=== PATIENT | male | born 1970 | race Caucasian/White ===

== ENCOUNTER 2017-12-20 11:50 | Inpatient (IN) | payer MEDICARE, MEDICAID ==
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
[2017-12-20 13:29] LABS: Amphetamine Screen,Urine Not Detected (NotDetected); Barbiturate Screen,Urine Not Detected (NotDetected); Benzodiazepines Screen,Urine Not Detected (NotDetected); Cocaine Screen,Urine Detected (NotDetected); Methadone Screen, Urine Not Detected (NotDetected); Opiate Screen,Urine Not Detected (NotDetected); Oxycodone Screen, Urine Not Detected (NotDetected); Phencyclidine Screen,Urine Not Detected (NotDetected); Tricyclic Antidepressant,Urine Not Detected (NotDetected); Urn Cannabinoid Scrn Detected (NotDetected)
[2017-12-20] MEDS ORDERED: MAGNESIUM HYDROXIDE 2,400 MG/10 ML CUP PO PRN (14:08)
[2017-12-20] MEDS ORDERED: MAG HYDROX/AL HYDROX/SIMETH 30 ML CUP PO PRN (14:08)
[2017-12-20] MEDS ORDERED: ZIPRASIDONE 20 MG VIAL IM PRN (14:08)
[2017-12-20] MEDS ORDERED: ACETAMINOPHEN TAB 325 MG TAB PO PRN (14:08)
[2017-12-20] MEDS ORDERED: LORazepam 2 MG/ML INJ IM PRN (14:12)
[2017-12-20 14:25] LABS: Appearance,Urine Clear (Clear); Bilirubin,Urine Negative (Negative); Blood,Urine Negative (Negative); Color,Urine Light Yellow; Glucose,Urine (UA) Negative (Negative); Ketones,Urine Trace (Negative); Leukocyte Esterase,Urine Negative (Negative); Nitrite,Urine Negative (Negative); PH, Urine 6.5 (5.0-8.0); Protein,Urine Negative (Negative); Specific Gravity,Urine 1.005 (1.001-1.035); Urobilinogen,Urine <2.0 mg/dL (<2.0)
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
[2017-12-20] MEDS: NICOTINE 14MG/24HR PATCH TRANSDERM SCH (18:07)
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
[2017-12-20] MEDS ORDERED: IBUPROFEN 400 MG TAB PO PRN (18:34)
[2017-12-20] MEDS: LORazepam 1 MG TAB PO PRN (19:34)
[2017-12-20] MEDS: QUEtiapine 400 MG TAB PO SCH (20:46)
[2017-12-21] MEDS: ESCITALOPRAM 5 MG TAB PO SCH (08:33)
[2017-12-21] MEDS: QUEtiapine 50 MG TAB PO SCH (08:33)
[2017-12-21] MEDS: NICOTINE 14MG/24HR PATCH TRANSDERM SCH (08:34)
--- NOTE | 2017-12-21 10:21 | XR ---
EXAMINATION TYPE: XR chest 2V DATE OF EXAM: 12/21/2017 CLINICAL HISTORY: Cough and weight loss TECHNIQUE: Frontal and lateral views of the chest are obtained. COMPARISON: 02/20/2014 FINDINGS: There is no focal air space opacity, pleural effusion, or pneumothorax seen. The cardiac silhouette size is within normal limits. Multiple healed remote right-sided rib fractures identified. IMPRESSION: No acute cardiopulmonary process.
[2017-12-21 11:21] LABS: Albumin 4.4 g/dL (3.5-5.0); Basophils % (A) 0 %; Calcium 9.9 mg/dL (8.4-10.2); Eosinophils # (A) 0.1 k/uL (0-0.7); Eosinophils % (A) 2 %; HCT 42.2 % (39.0-53.0); HGB 13.7 gm/dL (13.0-17.5); Lymphocytes # (A) 2.6 k/uL (1.0-4.8); Lymphocytes % (A) 35 %; MCH 27.5 pg (25.0-35.0); MCHC 32.6 g/dL (31.0-37.0); MCV 84.4 fL (80.0-100.0); Mean Platelet Volume 7.4; Monocytes # (A) 0.4 k/uL (0-1.0); Monocytes % (A) 6 %; Neutrophils # (A) 4.1 k/uL (1.3-7.7); Neutrophils % (A) 56 %; Platelet Count 199 k/uL (150-450); Potassium 4.8 mmol/L (3.5-5.1); RDW 13.4 % (11.5-15.5); Total Bilirubin 0.5 mg/dL (0.2-1.3); Total Protein 7.2 g/dL (6.3-8.2); WBC 7.3 k/uL (3.8-10.6)
--- NOTE | 2017-12-21 13:25 | P.PN ---
Progress Note - Text Progress Note Date: 12/21/17 Interval History: Patient is a 47-year-old male who was seen today, he reports that he was feeling slightly groggy this morning, but states that the voices are much better. He states that he slept well. Patient denies that he called and threatened his girlfriend, he states that they are arguing but he didn't call anyone. Patient reports still having suicidal ideation and feeling slightly less irritable. Patient states that he is still depressed about his situation. Mental Status: Appearance/Attitude: Patient is appropriately dressed, wearing a hoodie and kept the "up over his head during the interview made intermittent eye contact and was cooperative Behavior: Patient does not exhibit any psychomotor agitation or retardation. Speech/Language: Patient's speech is spontaneous of normal volume and rhythm and he is coherent Thought Process: Patient is goal-directed there is no evidence of loose association or flight of ideas and he is not tangential or circumstantial. Thought Content: Patient reports that the auditory hallucinations are much better, denies any visual hallucinations and does not reporting any paranoid ideation. No delusions were elicited. Patient states that he did not call his girlfriend and threaten her last night and states that they have been arguing but denies calling her. He states he slept well last evening and reports his appetite is good. He states that he is still suspicious of people, and states that he still depressed about his current situation. He states he felt slightly groggy this morning. Suicidal/Homicidal Ideation: Patient states that he continues to have suicidal ideation, no current plan and denies any current homicidal ideation. Sensorium/Cognition: Patient is alert and oriented to person, place, and time and his recent and remote memory are grossly intact Mood/Affect: Patient's mood remains depressed and his affect is blunted Insight/Judgment: Patient's insight and judgment are fair Assessment: Patient states that the voices are better, he is feeling slightly groggy this morning and continues to have suicidal thoughts and feel depressed about his current situation. He denies that he contacted his girlfriend and threatened to kill her and states that he never did contact her and states that they have been arguing with each other. Patient reports that he is feeling slightly less irritable than he was prior to admission. Patient was encouraged to attend groups and activities. Plan: Patient will continue on Seroquel 50 mg in the morning and 400 mg at bedtime as well as Lexapro 5 mg daily, we'll continue to evaluate his response. Patient continues to require hospitalization secondary to his auditory hallucinations, his mood and suicidal ideation.
[2017-12-21 19:43] LABS: Hemoglobin A1C 5.5 % (4.0-6.0)
[2017-12-21] MEDS: QUEtiapine 400 MG TAB PO SCH (21:10)
[2017-12-22 06:44] VITALS: RESP 16
[2017-12-22] MEDS: LORazepam 1 MG TAB PO PRN (08:50)
[2017-12-22] MEDS: ESCITALOPRAM 5 MG TAB PO SCH (08:50)
[2017-12-22] MEDS: NICOTINE 14MG/24HR PATCH TRANSDERM SCH (08:50)
[2017-12-22] MEDS: QUEtiapine 50 MG TAB PO SCH ×2 (08:50→16:30)
--- NOTE | 2017-12-22 11:10 | P.PN ---
Progress Note - Text Progress Note Date: 12/22/17 Interval History: Patient is a 47-year-old male who was seen today and states that he continues to want to , and states that the medications have been of little benefit because "I just started it". Patient reports he has no plan to act on his thoughts while he is here. He states that the voices are slowly decreasing but he continues to still feel "pissed off". Patient states that he needs to find housing and that's why he is feeling suicidal, requesting that we find housing for him. He states he is on a waiting list for public housing, demands that we find a place for him at [facility] or some other place. Patient when told that he needs to speak with community mental health regarding housing and that we do not provide housing assistance and we could refer him to a jail or a motel he told me that "if I go out to the street I will kill myself". Patient then got up and walked out of the interview room, using profanity and complaining that no one will help him. Mental Status: Appearance/Attitude: Patient is appropriately dressed, wearing a hoodie with the addison up over his head during the entire interview, making only intermittent eye contact and was initially cooperative becoming increasingly irritable and eventually leaving the interview room Behavior: Patient does not exhibit any psychomotor retardation or agitation but does become increasingly irritable when his demands for housing are not met Speech/Language: Patient's speech is spontaneous and of normal volume and rhythm and he is coherent. Thought Process: Patient is goal-directed, there is no evidence of circumstantial or tangential thought and no loose association or flight of ideas. Thought Content: Patient reports that the auditory hallucinations are slowly decreasing, no visual hallucinations, patient remains suspicious but no delusional ideation was elicited. Patient states that he is sleeping but remains irritable. He states that he wants to because he doesn't have a place to live. Patient is eating well. Suicidal/Homicidal Ideation: Patient states that he is thinking of suicide and wants to but has no plan to act at this time, threatening that if housing is not found for him and he is discharged to a jail he will go out on the street and kill himself. He denies any current homicidal ideation. Sensorium/Cognition: Patient is alert and oriented to person, place, and time and his recent and remote memory are grossly intact. Mood/Affect: Patient's mood remains irritable and his affect is appropriate to his mood Insight/Judgment: Patient's insight and judgment are limited Assessment: Patient remains irritable, stating that he wants to and threatening suicide to to be discharged to a jail and demanding that housing be found for him. Patient reports that the auditory hallucinations are slowly decreasing with the additional Seroquel but states that he feels no less depressed because he is only just started the Lexapro. Patient stated that if he was discharged to a jail he will go out on the street and kill himself. Patient became increasingly irritable during the interview as his demands for housing assistance were not met and abruptly left the interview room. Patient is not attending groups or activities. Plan: Will continue Lexapro 5 mg daily to target his depressive symptoms, increase the Seroquel to 50 mg twice a day and continue 400 milligrams at bedtime to target his psychotic symptoms. Patient was encouraged to work with community mental health on finding housing for him at discharge, he was told that he could either go to a jail or a motel on discharge. Patient continues to require hospitalization secondary to his suicidal ideation, depressed mood and psychotic symptoms.
[2017-12-22] MEDS: QUEtiapine 400 MG TAB PO SCH (21:20)
[2017-12-23] MEDS: ESCITALOPRAM 5 MG TAB PO SCH (09:05)
[2017-12-23] MEDS: LORazepam 1 MG TAB PO PRN ×2 (09:05→18:44)
[2017-12-23] MEDS: QUEtiapine 50 MG TAB PO SCH ×2 (09:05→15:53)
[2017-12-23] MEDS: NICOTINE 14MG/24HR PATCH TRANSDERM SCH (09:05)
[2017-12-23] MEDS ORDERED: ESCITALOPRAM 5 MG TAB PO STA (10:07)
--- NOTE | 2017-12-23 11:48 | P.PN ---
Progress Note - Text Progress Note Date: 12/23/17 Interval History: Patient is a 47-year-old male who was seen today and reports that he felt less irritable with the increase in Seroquel. Patient states that he slept on and off at night but was sleeping during the day yesterday. He states that he continues to feel suicidal and have suicidal thoughts and feel depressed. He reports that the auditory hallucinations are slowing down somewhat. He was unable to tell me why he was asked to leave his current residence stating that the landlord told him that it was because of something he said to his . Patient states he has no idea what the landlord was referring to. Mental Status: Appearance/Attitude: Patient is appropriately dressed, makes intermittent eye contact and is cooperative. Behavior: Patient does not display any psychomotor agitation or retardation. Speech/Language: Patient speech is spontaneous, normal volume and rhythm and he is coherent. Thought Process: Patient is goal-directed, not circumstantial or tangential and no loose association or flight of ideas. Thought Content: Patient states that the auditory hallucinations are decreasing but still present, no visual hallucinations and no delusions or paranoid ideation were elicited. Patient states that he slept on and off last night but had been sleeping during the day. He states his appetite is good. Patient states he still feels irritable but it is less so during the day. He reports he still feels depressed and is concerned about leaving and not having a place to live. Suicidal/Homicidal Ideation: Patient reports he continues to have suicidal ideation, no plan to act at this time and no current homicidal ideation. Sensorium/Cognition: Patient is alert and oriented to person, place, and time and his recent and remote memory are grossly intact. Mood/Affect: Patient's mood remains slightly irritable and depressed and his affect is blunted Insight/Judgment: Patient's insight and judgment are fair. Assessment: Patient continues to report suicidal ideation, states the auditory hallucinations are decreasing but he remains depressed. Patient also states that he is less irritable and is unable to come up with a solution for his housing. Patient is unable to explain why the landlord asked him to leave. Patient has not been attending groups or activities and spends the day in his room in bed, not sleeping well at night. Plan: Patient will continue on Seroquel at 50 mg twice a day and 400 at bedtime and will increase his Lexapro to 10 mg a day to target his depression. Social work is working with the patient regarding housing options for him. Patient requires hospitalization secondary to his suicidal ideation and to further stabilize his mood.
[2017-12-23] MEDS: QUEtiapine 400 MG TAB PO SCH (21:19)
[2017-12-24] MEDS: NICOTINE 14MG/24HR PATCH TRANSDERM SCH (08:47)
[2017-12-24] MEDS: ESCITALOPRAM 10 MG TAB PO SCH (08:47)
[2017-12-24] MEDS: QUEtiapine 50 MG TAB PO SCH ×2 (08:47→16:25)
--- NOTE | 2017-12-24 11:57 | P.PN ---
Progress Note - Text Progress Note Date: 12/24/17 Interval History: Patient is a 47-year-old male who was seen today and reports that he continues to feel "about the same". When I asked him if he was feeling suicidal as he had told me yesterday that he was not he stated no he is not currently suicidal. But he continues to feel depressed and upset because he doesn't have a place to live. Patient states that he was given a list of apartments by [facility] today and has yet to make more than one phone call stating that he's already been turned down by one but when questioned further it's just that there was no availability there. Patient states he attended 2 groups this morning. He states that he needs to find a place to live otherwise he will be living on the streets because he is not going to any detention. Patient does not want his Seroquel increased because he states it already is making him dizzy. Patient states that he doesn't think that the increase in the Lexapro or the change in the Seroquel has made any difference because he still does not have a place to live. Mental Status: Appearance/Attitude: Patient is dressed appropriately, makes intermittent eye contact and is superficially cooperative. Behavior: Patient does not display any psychomotor agitation or retardation, but got up and left the interview room abruptly. Speech/Language: Patient's speech is spontaneous and of normal volume and rhythm and he is coherent. Thought Process: Patient is goal-directed although with brief responses to questions and he is not tangential or circumstantial Thought Content: Patient states the auditory hallucinations have slowed a bit, no visual hallucinations and no paranoid or delusional ideation is elicited. Patient states that he continues to worry and his thoughts are racing about where he is going to live when he is discharged. Patient reports that he feels about the same today as he did on admission. Patient states that he continues to feel depressed because he has no place to live. Patient reports that he slept fairly well but states that he was worried all night about where he is going to live. Patient states his appetite is good. Suicidal/Homicidal Ideation: Patient denies any current suicidal or homicidal ideation. Patient stated that he is he was walking out of the interview room that if he is sent to a detention he'll probably kill someone there. Sensorium/Cognition: Patient is alert and oriented to person, place, and time and his recent and remote memory are grossly intact. Mood/Affect: Patient's mood remains irritable and his affect is blunted Insight/Judgment: Patient's insight and judgment are poor Assessment: Patient continues to report feeling depressed, worried and upset because he has no place to live, making threats to either hurt himself or someone else if he is is sent to a detention and states he'll live on the streets first. Patient reports that he does not want the Seroquel increased because he' s already dizzy from it. Patient states that the Lexapro has not been of any benefit. Patient denies any current suicidal or homicidal ideation. Patient was given a list of apartments by [facility] and has contacted one so far and states he was turned down but in reality they had no availability. Plan: Patient will continue on Lexapro 10 mg a day and Seroquel 50 mg twice a day and 400 mg at bedtime. At patient's request his medications will not be adjusted at this time. Patient and I discussed discharge on Wednesday, patient got upset and walked out of the interview room. Patient was encouraged to contact the apartments on the list over the weekend and attend groups and activities.
[2017-12-24] MEDS: LORazepam 1 MG TAB PO PRN (16:25)
[2017-12-24] MEDS: QUEtiapine 400 MG TAB PO SCH (20:53)
[2017-12-25] MEDS: ESCITALOPRAM 10 MG TAB PO SCH (08:48)
[2017-12-25] MEDS: QUEtiapine 50 MG TAB PO SCH ×2 (08:48→16:24)
[2017-12-25] MEDS: NICOTINE 14MG/24HR PATCH TRANSDERM SCH (08:49)
[2017-12-25] MEDS: LORazepam 1 MG TAB PO PRN ×2 (08:49→17:42)
--- NOTE | 2017-12-25 13:20 | P.PN ---
Progress Note - Text Progress Note Date: 12/25/17 Interval history: Patient seen in [facility] today for Dr. Aceves. He reports that he had multiple different stressors prior to this hospitalization including relationship breakup, losing a job and currently being homeless. He states he doesn't have anywhere to go right now. He also had been off of his medications. He states he feels about the same as when he came in the hospital. Mental status exam: He is alert and cooperative with the interview. His affect is restricted. He appears to have depressed mood. He admits to some ongoing thoughts of suicide but reports that he feels safe. The hospital. He admits to some on and off auditory hallucinations telling him to hurt himself, he relates he tries to ignore them. He denies any thoughts of harm to others. He does not make any daniel delusional statements. Plan: We'll maintain current psychotropic medication regimen. Monitor for any medication side effects. We'll continue to cover this patient for Dr. Aceves through the weekend.
[2017-12-25] MEDS: QUEtiapine 400 MG TAB PO SCH (20:02)
[2017-12-26] MEDS: NICOTINE 14MG/24HR PATCH TRANSDERM SCH (08:21)
[2017-12-26] MEDS: ESCITALOPRAM 10 MG TAB PO SCH (08:21)
[2017-12-26] MEDS: QUEtiapine 50 MG TAB PO SCH ×2 (08:21→15:37)
--- NOTE | 2017-12-26 14:58 | P.PN ---
Progress Note - Text Progress Note Date: 12/26/17 Interval history: Patient is seen in [facility] today for Dr. Aceves. He relays that he is still working on a potential place to go to from the hospital. He relates that he does not want to go to a [facility] because of past experiences there. He relays that he is still struggling with recent relationship breakup. Yesterday he made reference to his recent relationship in terms of her being a patient of mine and relayed for me to remember her name. He clarifies this today by relaying that he said to remember her name in relation to him verbalizing she was a patient of mine. He admits to some ongoing and off thoughts of suicide. He denies any thoughts of harm to others. He does talk about plans to be looking for an alternative job. Mental status exam: He is alert and cooperative with the interview. Speech is fluent, not rapid or pressured. Thought processes organized. His affect overall is restricted. He does not show any active evidence of psychosis. He admits to some on and off thoughts of suicide. He denies any thoughts of harm to others. Plan: We'll maintain current psychotropic medication regimen. We will continue to monitor regarding thoughts of suicide. He is given encouragement regarding continuing to look for potential places to stay. Dr. Aceves will resume care this patient starting tomorrow.
[2017-12-26] MEDS: LORazepam 1 MG TAB PO PRN (15:37)
[2017-12-26] MEDS: QUEtiapine 400 MG TAB PO SCH (20:12)
[2017-12-27 07:11] VITALS: BP 125/76; PULSE 70; TEMP 97.8
[2017-12-27] MEDS: ESCITALOPRAM 10 MG TAB PO SCH (08:16)
[2017-12-27] MEDS: NICOTINE 14MG/24HR PATCH TRANSDERM SCH (08:16)
[2017-12-27] MEDS: QUEtiapine 50 MG TAB PO SCH (08:16)
[2017-12-27] MEDS: LORazepam 1 MG TAB PO PRN (08:16)
--- NOTE | 2017-12-27 10:32 | P.DS ---
Providers Date of admission: 12/20/17 14:03 Expected date of discharge: 12/27/17 Attending physician: Lauren Aceves MD Consults: 12/20/17 14:08 Consult Physician Routine Consulting Provider: Talita Chau Consult Reason/Comments: H&P for mental health admission Do you want consulting provider notified?: Yes Primary care physician: Stated None Hospital Course: Discharge Diagnosis: Schizoaffective disorder, depressed type; marijuana use disorder, mild Reason for Admission: Patient is a 47-year-old male who brought himself to the emergency room today with a plan to cut his wrists. Patient states that he was feeling suicidal, hearing voices states that began after he was kicked out of the place he was living. He states he was in an apartment with other people and he had been living there since July of last year. He states he has no idea why he was asked to leave, he states he was paying his rent and this occurred on Wednesday or Wednesday he is unsure of which day. He states after he left he went to a motel while he was there he had thought of cutting himself with a razor blade and states that he was in the bathtub. Patient states he came to the emergency room because he was feeling depressed. He states that he always feels depressed he is sad and unhappy with his life. He states that prior to Wednesday or Wednesday he was feeling fine and had not been feeling suicidal but was still feeling depressed. Patient states that he always hears voices and most of the time he can ignore them, he states currently the voices are telling him to hurt himself. Patient states that he has been followed at [facility] and is seen on every 2 month basis by his director of casework and every 3 months by a psychiatrist. Patient reports that he has continued with Seroquel 400 mg for some time. Patient was last admitted here in September 2016 was discharged on Seroquel 100 twice a day and 300 at bedtime and Remeron 30 mg at bedtime patient states that the Seroquel during the day was making him sleepy and he is unsure of why the Remeron was discontinued. He feels that the Seroquel was decreased in the spring but is unsure of when he stopped taking the Remeron. Patient states that his receive psychiatric services since he was 15 years of age when he was admitted for the first time after he tried to hang himself. He states that he has been on medication ever since that time and has had numerous admissions. Patient states that he is sleeping about 4 hours a night now and states that he has racing thoughts and worries at night. He states that the Seroquel makes him feel tired during the day. 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 He states that he does go to work but does not enjoy it. Patient reports that he uses marijuana several times a week and was unaware that crack was in the marijuana he used the other day. Patient does not endorse any history of manic episodes in the past, no OCD symptoms and states that in the past he has mostly had depressive episodes with suicide attempts 3-4 times. Patient reports that he hears voices and he always has as well as being suspicious of people and doesn't trust anyone. He states the voices currently and in the past have been command telling him to hurt himself, he states when he is not feeling as depressed he is able to ignore the voices. Mental status on Admission: Appearance/Attitude: Patient is dressed in a hospital gown, makes intermittent eye contact and is cooperative Behavior: Patient does not display any psychomotor agitation or retardation. Speech/Language: Patient's speech is spontaneous and of normal volume and rhythm and he is coherent. Thought Process: Patient is goal-directed there is no evidence of loose association or flight of ideas and he is not circumstantial or tangential. Patient does complain of racing thoughts at night when he is trying to fall asleep. Thought Content: Patient states that he is hearing voices, currently the voices are telling him to hurt himself or making derogatory comments about him and he denies any visual hallucinations. Patient states that he is always suspicious and doesn't trust anyone but no delusional or paranoid ideation was elicited. Patient states he sleeps about 4 hours a night because of the racing thoughts and worries that he has. Patient states that he is been more irritable and upset since he was kicked out of his living situation. He states since that time he began feeling suicidal with a plan to cut his wrists. Suicidal/Homicidal Ideation: Patient states he is having suicidal ideation, doesn't want to live, tired of his visits to the hospital and had a plan to cut his wrists and he denies any current homicidal ideation Sensorium/Cognition: Patient is alert and oriented to person, place, and time and his recent and remote memory are grossly intact. Mood/Affect: Patient's mood is irritable at times, depressed and his affect is blunted Insight/Judgment: Patient's insight and judgment are fair Hospital Course: Patient was admitted on a voluntary basis, placed on routine precautions and group and activity therapy were ordered. Patient was also ordered laboratory studies as well as a medical consultation. Patient was continued on his Seroquel 400 mg at bedtime and 50 mg was added in the morning initially to target his irritability as well as his auditory hallucinations. Patient was placed on Lexapro 5 mg to target his depressive symptoms. Patient continued to report suicidal ideation, feeling hopeless about his life as well as feeling irritable and the voices persisting. Seroquel was increased to 50 mg twice a day and 400 at bedtime and his Lexapro was also increased to 10 mg a day. Patient reported that the auditory hallucinations had quieted down quite a bit and were back to what was baseline for him. Patient had been given a list of low income apartments by [facility] and he stated that he called and no one had any openings. Patient reported that the suicidal thoughts came and went but he had no plan to act on them. Patient did not attend groups or activities , spent most of his time in his room. Patient discussed going to a hotel at the time of discharge to await an opening in a low income apartment. Patient reported that he would return to work after discharge. Patient in goal setting group reported that he felt the same and stated that he was hopeless and he was referring to being hopeless about his life in general. Patient and I discussed discharge and he stated that he felt he was ready for discharge today. Allergies No Known Allergies Allergy (Verified 12/20/17 12:22) Laboratory Last Values WBC 7.3 k/uL (3.8-10.6) 12/21/17 10:52 RBC 5.00 m/uL (4.30-5.90) 12/21/17 10:52 Hgb 13.7 gm/dL (13.0-17.5) 12/21/17 10:52 Hct 42.2 % (39.0-53.0) 12/21/17 10:52 MCV 84.4 fL (80.0-100.0) 12/21/17 10:52 MCH 27.5 pg (25.0-35.0) 12/21/17 10:52 MCHC 32.6 g/dL (31.0-37.0) 12/21/17 10:52 RDW 13.4 % (11.5-15.5) 12/21/17 10:52 Plt Count 199 k/uL (150-450) 12/21/17 10:52 Neutrophils % 56 % 12/21/17 10:52 Lymphocytes % 35 % 12/21/17 10:52 Monocytes % 6 % 12/21/17 10:52 Eosinophils % 2 % 12/21/17 10:52 Basophils % 0 % 12/21/17 10:52 Neutrophils # 4.1 k/uL (1.3-7.7) 12/21/17 10:52 Lymphocytes # 2.6 k/uL (1.0-4.8) 12/21/17 10:52 Monocytes # 0.4 k/uL (0-1.0) 12/21/17 10:52 Eosinophils # 0.1 k/uL (0-0.7) 12/21/17 10:52 Basophils # 0.0 k/uL (0-0.2) 12/21/17 10:52 Sodium 144 mmol/L (137-145) 12/21/17 10:52 Potassium 4.8 mmol/L (3.5-5.1) 12/21/17 10:52 Chloride 107 mmol/L (98-107) 12/21/17 10:52 Carbon Dioxide 27 mmol/L (22-30) 12/21/17 10:52 Anion Gap 10 mmol/L 12/21/17 10:52 BUN 20 mg/dL (9-20) 12/21/17 10:52 Creatinine 1.19 mg/dL (0.66-1.25) 12/21/17 10:52 Est GFR (CKD-EPI)AfAm 83 (>60 ml/min/1.73 sqM) 12/21/17 10:52 Est GFR (CKD-EPI)NonAf 72 (>60 ml/min/1.73 sqM) 12/21/17 10:52 Glucose 99 mg/dL (74-99) 12/21/17 10:[address] Glu mg/dL 111 12/21/17 10:52 Hemoglobin A1c 5.5 % (4.0-6.0) 12/21/17 10:52 Calcium 9.9 mg/dL (8.4-10.2) 12/21/17 10:52 Total Bilirubin 0.5 mg/dL (0.2-1.3) 12/21/17 10:52 AST 18 U/L (17-59) 12/21/17 10:52 ALT 22 U/L (21-72) 12/21/17 10:52 Alkaline Phosphatase 56 U/L (38-126) 12/21/17 10:52 Total Protein 7.2 g/dL (6.3-8.2) 12/21/17 10:52 Albumin 4.4 g/dL (3.5-5.0) 12/21/17 10:52 Triglycerides 90 mg/dL (<150) 12/21/17 10:52 Cholesterol 230 mg/dL (<200) H 12/21/17 10:52 LDL Cholesterol, Calc 165 mg/dL (0-99) H 12/21/17 10:52 HDL Cholesterol 47 mg/dL (40-60) 12/21/17 10:52 TSH 1.620 mIU/L (0.465-4.680) 12/21/17 10:52 Urine Color Light Yellow 12/20/17 12:58 Urine Appearance Clear (Clear) 12/20/17 12:58 Urine pH 6.5 (5.0-8.0) 12/20/17 12:58 Ur Specific [place] 1.005 (1.001-1.035) 12/20/17 12:58 Urine Protein Negative (Negative) 12/20/17 12:58 Urine Glucose (UA) Negative (Negative) 12/20/17 12:58 Urine Ketones Trace (Negative) H 12/20/17 12:58 Urine Blood Negative (Negative) 12/20/17 12:58 Urine Nitrite Negative (Negative) 12/20/17 12:58 Urine Bilirubin Negative (Negative) 12/20/17 12:58 Urine Urobilinogen <2.0 mg/dL (<2.0) 12/20/17 12:58 Ur Leukocyte Esterase Negative (Negative) 12/20/17 12:58 Urine Opiates Screen Not Detected (NotDetected) 03 12:58 Ur Oxycodone Screen Not Detected (NotDetected) 12/20/17 12:58 Urine Methadone Screen Not Detected (NotDetected) 12/20/17 12:58 Ur Propoxyphene Screen Not Detected (NotDetected) 12/20/17 12:58 Ur Barbiturates Screen Not Detected (NotDetected) 12/20/17 12:58 U Tricyclic Antidepress Not Detected (NotDetected) 12/20/17 12:58 Ur Phencyclidine Scrn Not Detected (NotDetected) 12/20/17 12:58 Ur Amphetamines Screen Not Detected (NotDetected) 12/20/17 12:58 U Methamphetamines Scrn Not Detected (NotDetected) 12/20/17 12:58 U Benzodiazepines Scrn Not Detected (NotDetected) 12/20/17 12:58 Urine Cocaine Screen Detected (NotDetected) H 12/20/17 12:58 U Marijuana (THC) Screen Detected (NotDetected) H 12/20/17 12:58 Discharge Mental Status: Appearance/Attitude: Patient was dressed in a hoodie with the addison up, makes intermittent eye contact and is cooperative Behavior: Patient does not display any psychomotor agitation or retardation. Speech/Language: Patient's speech is spontaneous and of normal volume and rhythm and he is coherent. Thought Process: Patient is goal-directed, there is no evidence of loose associations or flight of ideas and he is not circumstantial or tangential. Thought Content: Patient states that the auditory hallucinations have quieted down and of return to baseline, he denies any visual hallucinations and no delusions or paranoid ideation were elicited. Patient states that he has been sleeping, states that he feels hopeless about his whole life stating that he doesn't know what's going to happen to his life in general. Patient reports a good appetite. Patient states that he contacted all of the low income apartment and no one had an opening. Suicidal/Homicidal Ideation: Patient states that the suicidal thoughts, and go, he has no current plan to act and he denies any current homicidal ideation Sensorium/Cognition: Patient is alert and oriented to person, place, and time and his recent and remote memory are grossly intact. Mood/Affect: Patient's mood remains slightly depressed and his affect is blunted Insight/Judgment: Patient's insight and judgment are fair Risk Assessment: Patient's risk remains moderate secondary to his use of drugs/ alcohol Discharge Plan: Patient will be discharged, he states he will be staying at the [facility] and plans to return to [employer] to work in [employer]. Patient will continue on Seroquel 50 mg twice a day and 400 mg at bedtime as well as Lexapro 10 mg in the morning. Patient will be given prescriptions for these medications and will follow up at [facility] upon discharge and was encouraged to follow up with [facility] on locating housing. Patient was encouraged to avoid any alcohol or drugs on discharge. Patient Condition at Discharge: Stable Plan - Discharge Summary Discharge Rx Participant: No New Discharge Prescriptions: New Escitalopram [Lexapro] 10 mg PO DAILY #14 tab QUEtiapine [SEROquel] 50 mg PO 0900,1600 #28 tab Continue QUEtiapine FUMARATE [SEROquel] 400 mg PO HS #14 tablet Discharge Medication List Escitalopram [Lexapro] 10 mg PO DAILY #14 tab 12/27/17 [Rx] QUEtiapine FUMARATE [SEROquel] 400 mg PO HS #14 tablet 12/27/17 [Rx] QUEtiapine [SEROquel] 50 mg PO 0900,1600 #28 tab 12/27/17 [Rx] Follow up Appointment(s)/Referral(s): [facility] [Outside] - 12/28/17 11:30 am (12-28-17 @ 11:[address] Solomon 12-29-17 @ 4:15 with Luli Shelton) None,Stated [Primary Care Provider] - 1-2 days Patient Instructions/Handouts: Depression (DC), Suicide Prevention for Adults ( [place]) Activity/Diet/Wound Care/Special Instructions: Activity and diet as tolerated. Avoid the use of street drugs and alcohol. Remove all firearms from home. Take all medications as prescribed. When you are in need of refills of your medication please contact your medical provider and/ or outpatient psychiatrist to have this done. Please go to scheduled outpatient appointment for aftercare. If symptoms return or become worse you can call the Crisis Line at and/or go to the nearest emergency room for an evaluation. Discharge Disposition: HOME SELF-CARE
== END 2017-12-27 11:16 | disposition home or self-care (01) | DRG 885 ==
LOC: EC 11:50 → 3MHU 14:03
PROVIDERS: ADMIT Psychiatry & Neurology Psychiatry; ATTEND Psychiatry & Neurology Psychiatry
DX: F25.1 Schizoaffective disorder, depressive type (principal); R45.851 Suicidal ideations; Z59.0 Homelessness; F12.10 Cannabis abuse, uncomplicated; F41.9 Anxiety disorder, unspecified; F90.9 Attention-deficit hyperactivity disorder, unspecified type; F17.200 Nicotine dependence, unspecified, uncomplicated; G89.29 Other chronic pain; M54.5 Low back pain; M19.91 Primary osteoarthritis, unspecified site; Z79.899 Other long term (current) drug therapy; Z96.622 Presence of left artificial elbow joint; Z86.711 Personal history of pulmonary embolism; Z71.6 Tobacco abuse counseling
CPT/HCPCS: 71046; 80053; 80061; 80306; 81003; 82075; 83036; 84443; 85025; 99285

== ENCOUNTER 2021-12-09 12:22 | Inpatient (IN) | payer MEDICARE, MEDICAID ==
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
[2021-12-09 13:33] LABS: Amphetamine Screen,Urine Not Detected (NotDetected); Benzodiazepines Screen,Urine Detected (NotDetected); Cocaine Screen,Urine Detected (NotDetected); Methadone Screen, Urine Not Detected (NotDetected); Opiate Screen,Urine Not Detected (NotDetected); Phencyclidine Screen,Urine Not Detected (NotDetected); Tricyclic Antidepressant,Urine Not Detected (NotDetected); Urn Cannabinoid Scrn Detected (NotDetected)
[2021-12-09 13:34] LABS: Barbiturate Screen,Urine Not Detected (NotDetected); Oxycodone Screen, Urine Not Detected (NotDetected)
--- NOTE | 2021-12-09 16:46 | XR ---
EXAMINATION TYPE: XR foot complete LT DATE OF EXAM: 12/09/2021 COMPARISON: NONE HISTORY: Pain TECHNIQUE: 3 views FINDINGS: There is minimal plantar and Achilles calcaneal spurring. Metatarsals are intact. The toes appear intact. I see no fracture nor dislocation. IMPRESSION: No acute abnormality of the left foot. No evidence of radiopaque foreign body.
[2021-12-09] MEDS ORDERED: MAGNESIUM HYDROXIDE 2,400 MG/10 ML CUP PO PRN (20:36)
[2021-12-09] MEDS ORDERED: ACETAMINOPHEN TAB 325 MG TAB PO PRN (20:36)
[2021-12-09] MEDS ORDERED: HALOPERIDOL LACTATE 5 MG/ML 1 ML VIAL IM PRN (20:36)
[2021-12-09] MEDS ORDERED: MAG HYDROX/AL HYDROX/SIMETH 30 ML CUP PO PRN (20:36)
[2021-12-09] MEDS ORDERED: LORazepam 2 MG/ML INJ IM PRN (20:38)
[2021-12-09] MEDS: LORazepam 1 MG TAB PO PRN (20:52)
[2021-12-09] MEDS: haloperidoL 5 MG TAB PO PRN (20:52)
[2021-12-10 07:25] LABS: Basophils # (A) 0.1 k/uL (0-0.2); Basophils % (A) 1 %; Eosinophils # (A) 0.3 k/uL (0-0.7); Eosinophils % (A) 4 %; HCT 46.4 % (39.0-53.0); HGB 15.1 gm/dL (13.0-17.5); Lymphocytes # (A) 2.6 k/uL (1.0-4.8); Lymphocytes % (A) 40 %; MCH 29.3 pg (25.0-35.0); MCHC 32.6 g/dL (31.0-37.0); MCV 89.9 fL (80.0-100.0); Mean Platelet Volume 8.1; Monocytes # (A) 0.4 k/uL (0-1.0); Monocytes % (A) 6 %; Neutrophils # (A) 3.2 k/uL (1.3-7.7); Neutrophils % (A) 49 %; Platelet Count 210 k/uL (150-450); RBC 5.16 m/uL (4.30-5.90); RDW 13.9 % (11.5-15.5); WBC 6.6 k/uL (3.8-10.6)
[2021-12-10 07:56] LABS: ALT 16 U/L (4-49); AST 20 U/L (17-59); African American GFR (CKD) >90 (>60 ml/min/1.73 sqM); Albumin 4.4 g/dL (3.5-5.0); Alkaline Phosphatase 59 U/L (38-126); Anion Gap 7 mmol/L; Blood Urea Nitrogen 23 mg/dL (9-20); Calcium 9.4 mg/dL (8.4-10.2); Carbon Dioxide 25 mmol/L (22-30); Chloride 106 mmol/L (98-107); Glucose 91 mg/dL (74-99); Non-African American GFR(CKD) 86 (>60 ml/min/1.73 sqM); Potassium 4.5 mmol/L (3.5-5.1); Sodium 138 mmol/L (137-145); Total Bilirubin 0.8 mg/dL (0.2-1.3); Total Protein 7.7 g/dL (6.3-8.2)
[2021-12-10] MEDS: NICOTINE 14MG/24HR PATCH TRANSDERM SCH (08:06)
[2021-12-10] MEDS: haloperidoL 5 MG TAB PO PRN (11:35)
[2021-12-10] MEDS: LORazepam 1 MG TAB PO PRN (12:18)
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
[2021-12-10 15:00] LABS: Chol/HDL Ratio 5.63 Ratio; LDL Cholesterol,Calculated 181.8 mg/dL (0.0-131.0)
[2021-12-10] MEDS: DULoxetine HCL 30 MG CAPSULE.DR PO SCH (16:46)
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
[2021-12-11] MEDS: QUEtiapine 100 MG TAB PO SCH ×2 (01:54→21:32)
[2021-12-11] MEDS: DULoxetine HCL 30 MG CAPSULE.DR PO SCH (08:12)
[2021-12-11] MEDS: NICOTINE 14MG/24HR PATCH TRANSDERM SCH ×2 (08:12→08:31)
[2021-12-11] MEDS: LORazepam 1 MG TAB PO PRN (08:13)
--- NOTE | 2021-12-11 14:01 | P.PN ---
Progress Note - Text Progress Note Date: 12/11/21 Interval History: Patient was seen laying in his bed today and was directable and agreeable to s peak with display card writer in the office. Patient appears to have mild improvement in his affect today. He appears to be more directable during conversation. Denying any irritability today. He states that he still feels mildly depressed today and some anxiety however does state that Cymbalta has been helping. He states that he is still hearing voices at times however was vague about what they're saying. He states that he fell asleep early last night and missed his dose of Seroquel. He claims that he is thinking about possibly [facility] as he wants to get sober. At this time patient denies any suicidal or homical ideations, intent or plan. Patient denies any visual hallucinations and denies any paranoia or delusions. Patient denies any side effects from the medications and has been compliant with meds. Mental Status Exam: General Appearance: Patient appears to be stated age is alert, directable, and attempts to cooperate. Patient appears to have improving hygiene and grooming. Behavior: Patient is seated without any agitated behavior. Attempts to cooperate. Speech: Patient's speech is fluent and nonpressured. Mood/Affect: Patient reports their mood is improving mildly, affect is congruent and constricted. Suicidality/Homicidality: Patient denies having any homicidal ideation intent or plan. Denies any suicidal ideations intent or plan Perceptions: Patient denies any visual hallucinations and denies any auditory hallucinations Though content/process: There is no evidence of any delusional thought content and thought process is linear and goal-directed. Memory and concentration: AOX3, grossly intact for the purposes of this session. Judgment and insight: poor, improving mildly IMPRESSIONS: Schizoaffective disorder, depressive type Cocaine use disorder Cannabis use disorder mild Nicotine dependence Plan: -Patient continues to meet criteria for inpatient psychiatric admission for symptom stabilization and safety. Patient has signed adult voluntary form and medication consent and was placed in patient's chart. -Medications: Continue Seroquel 100 mg daily at bedtime for mood stabilization/psychosis/insomnia, Cymbalta increased to 60 mg daily for mood/anxiety/pain -When necessary Ativan and Haldol for agitation/aggression. -NRT - nicotine patch -SW on board for discharge planning. Encouraged the patient to participate in milieu. [facility] may [facility] to [facility]. We'll provide patient with information. Likely discharge in 1-2 days.
[2021-12-12 08:38] VITALS: BP 137/81; PULSE 88; RESP 18; TEMP 97.2
[2021-12-12] MEDS: NICOTINE 14MG/24HR PATCH TRANSDERM SCH (08:38)
[2021-12-12] MEDS ORDERED: DULoxetine HCL 60 MG CAPSULE.DR PO SCH (09:00)
--- NOTE | 2021-12-12 13:01 | P.DS ---
Providers Date of admission: 12/09/21 19:54 Expected date of discharge: 12/12/21 Attending physician: Dhruv Jolley MD Consults: 12/09/21 20:36 Consult Physician Routine Consulting Provider: Salazar [place] Consult Reason/Comments: H&P and medical Do you want consulting provider notified?: Yes Primary care physician: Leonid Mendenhall - Discharge Diagnosis(es) (1) Schizoaffective disorder, depressive type Current Visit: Yes Status: Acute Priority: High (2) Cocaine use disorder Current Visit: Yes Status: Acute Priority: High (3) Cannabis use disorder, mild, abuse Current Visit: Yes Status: Acute Priority: Medium (4) Nicotine dependence Current Visit: Yes Status: Acute Priority: Low Hospital Course: Admission HPI: Admission note was completed by [blog writer] "[Patient is a 51-year-old male with a history of schizoaffective disorder, lives alone in apartment is single has no kids. Patient presented to the hospital yesterday on petition by police for depression and suicidal thoughts. Patient was admitted voluntarily however to the mental health unit. He has a history of schizoaffective disorder however has not been compliant with his medications. He is also previously been following up with [facility]. He's had numerous psychiatric admissions. Patient was positive in his urine drug screen for benzodiazepines, cocaine and THC. Patient was agreeable to speech language pathologist assistant today. He appeared to be fairly constricted in his affect and was directable. He states that he is feeling very depressed and hearing voices. He states that the voices and become more "demanding" and has been telling him negative things like he is a "failure" and also to "kill myself". He states that this is going on for the past several weeks. He states that he is also been using about 1 g of cocaine a week. He states that he also uses marijuana frequently. He claims that his payee called the engineering intern to bring him into the hospital. He states that he is trying to get over his roommate who overdosed and about one month ago which has really affected him. He states that he is also having financial difficulties. He claims that he is worried about his job that he recently started working out. He claims that he does deal with chronic depression. He has current anxiety at this time. He states that his sleep has been "on and off" and has a low appetite. He claims that he has been off medications psychiatrically for around 2 years now. Patient denies any homicidal ideations intent or plan. Patient currently claims that he is feeling suicidal however has no intent or plan. At this time patient denies any visual hallucinations. Patient denies any flight of ideas racing thoughts and increased in goal directed behavior. Patient admits to using rec drugs as noted above]" Hospital course: Upon admission to the unit patient was [directable and agreeable to commence treatment and signed adult voluntary form]. Patient got along well with other patients on the unit and followed unit protocol. Patient was compliant with the medications and denied any side effects throughout hospital course. Patient was started on [cymbalta 60 mg daily for mood/anxiety/pain, seroquel 100 mg qhs for insomnia/psychosis/mood stabilization]. Patient spoke of [his] stressors and engaged in therapy both group and individual. Patient was also seen by medical team for history and physical exam. [] Throughout the course of the hospitalization patient gradually improved with regards to [mood, anxiety], sleep and [returned back to their baseline level of functioning]. On the day of discharge patient denied any suicidal or homicidal ideations intent or plan denied any auditory or visual hallucinations. Patient endorsed wanting to live for [his health and to get back to work.] The patient denied any access to guns or weapons. Patient denied any paranoia and did not endorse any delusions. Patient does have a significant history of substance abuse [and] was counseled on abstaining from all substances including alcohol and marijuana. [Patient was offered however declined inpatient substance-abuse rehab.] Patient states that however he will think about possibly getting into [facility] to complete their program at a later date. Patient was also counseled on the medications and need for regular compliance and was encouraged to follow-up with their outpatient appointment for mental health and also for primary care. Mental status exam: General Appearance: Patient appears to be [tall, ]stated age is alert, pleasant, and cooperative. Patient is in no acute distress and has improved hygiene and grooming Behavior: Patient is calmly seated without any agitated behavior. cooperative Speech: Patient's speech is fluent and nonpressured. Mood/Affect: Patient reports their mood is "[better]", affect is congruent Suicidality/Homicidality: Patient denies having any suicidal or homicidal ideation intent or plan. Perceptions: Patient denies any auditory or visual hallucinations. Though content/process: There is no evidence of any delusional thought content and thought process is linear and goal-directed. [more future oriented] Memory and concentration: AOX3, grossly intact for the purposes of this session. Can spell "WORLD" backwards correctly. Judgment and insight: [chronically poor, however has] improved with guarded prognosis Impression: schizoaffective disorder, depressive type cocaine use disorder cannabis use disorder mild [Nicotine dependence] Plan: -Continue with discharge today as patient has improved and stabilized psychiatrically and is not currently an imminent threat to [himself] and/or others. [Patient will remain at chronically elevated risk for harm to self and/or others due to his impulsivity and substance abuse.] -Continue medications: cymbalta 60 mg daily for anxiety/mood/pain, seroquel 100 mg qhs for sleep/psychosis/mood stabilization. -Patient was counseled on the need for medication compliance and appropriate follow-up at mental health and also primary care for medical issues. Patient verbalized understanding and agreed. -Social work to help arrange for d/c today back home. Social work also to arrange for patients follow up appointments [with [facility]] for psychiatric care along with follow up with primary care provider. -Patient counseled on abstaining from recreational drugs and marijuana and alcohol. Was informed/educated on the adverse effects on their physical and mental health. [Patient verbally agreed and understood]. [Patient was offered substance abuse treatment however declined at this time.] He states that he will think about going to [facility] at a later date -Patient was instructed to return to the hospital or seek immediate medical care if their psychiatric or medical symptoms do worsen or reoccur. Allergies Allergy/AdvReac Type Severity Reaction Status Date / Time No Known Allergies Allergy Verified 12/09/21 13:55 Laboratory Results WBC 6.6 k/uL (3.8-10.6) 12/10/21 07:00 RBC 5.16 m/uL (4.30-5.90) 12/10/21 07:00 Hgb 15.1 gm/dL (13.0-17.5) 12/10/21 07:00 Hct 46.4 % (39.0-53.0) 12/10/21 07:00 MCV 89.9 fL (80.0-100.0) 12/10/21 07:00 MCH 29.3 pg (25.0-35.0) 12/10/21 07:00 MCHC 32.6 g/dL (31.0-37.0) 12/10/21 07:00 RDW 13.9 % (11.5-15.5) 12/10/21 07:00 Plt Count 210 k/uL (150-450) 12/10/21 07:00 MPV 8.1 12/10/21 07:00 Neutrophils % 49 % 12/10/21 07:00 Lymphocytes % 40 % 12/10/21 07:00 Monocytes % 6 % 12/10/21 07:00 Eosinophils % 4 % 12/10/21 07:00 Basophils % 1 % 12/10/21 07:00 Neutrophils # 3.2 k/uL (1.3-7.7) 12/10/21 07:00 Lymphocytes # 2.6 k/uL (1.0-4.8) 12/10/21 07:00 Monocytes # 0.4 k/uL (0-1.0) 12/10/21 07:00 Eosinophils # 0.3 k/uL (0-0.7) 12/10/21 07:00 Basophils # 0.1 k/uL (0-0.2) 12/10/21 07:00 Sodium 138 mmol/L (137-145) 12/10/21 07:00 Potassium 4.5 mmol/L (3.5-5.1) 12/10/21 07:00 Chloride 106 mmol/L (98-107) 12/10/21 07:00 Carbon Dioxide 25 mmol/L (22-30) 12/10/21 07:00 Anion Gap 7 mmol/L 12/10/21 07:00 BUN 23 mg/dL (9-20) H 12/10/21 07:00 Creatinine 1.00 mg/dL (0.66-1.25) 12/10/21 07:00 Est GFR (CKD-EPI)AfAm >90 (>60 ml/min/1.73 sqM) 12/10/21 07:00 Est GFR (CKD-EPI)NonAf 86 (>60 ml/min/1.73 sqM) 12/10/21 07:00 Glucose 91 mg/dL (74-99) 12/10/21 07:[address] Glu mg/dL 117 12/10/21 07:00 Hemoglobin A1c 5.7 % (0.0-6.0) 12/10/21 07:00 Calcium 9.4 mg/dL (8.4-10.2) 12/10/21 07:00 Total Bilirubin 0.8 mg/dL (0.2-1.3) 12/10/21 07:00 AST 20 U/L (17-59) 12/10/21 07:00 ALT 16 U/L (4-49) 12/10/21 07:00 Alkaline Phosphatase 59 U/L (38-126) 12/10/21 07:00 Total Protein 7.7 g/dL (6.3-8.2) 12/10/21 07:00 Albumin 4.4 g/dL (3.5-5.0) 12/10/21 07:00 Triglycerides 127.00 mg/dL (0.00-149.00) 12/10/21 07:00 Cholesterol 252.00 mg/dL (0.00-200.00) H 12/10/21 07:00 LDL Cholesterol, Calc 181.8 mg/dL (0.0-131.0) H 12/10/21 07:00 VLDL Cholesterol, Calc 25.40 mg/dL (5.00-40.00) 12/10/21 07:00 HDL Cholesterol 44.80 mg/dL (40.00-60.00) 12/10/21 07:00 Cholesterol/HDL Ratio 5.63 Ratio 12/10/21 07:00 TSH 3.970 mIU/L (0.465-4.680) 12/10/21 07:00 Urine Opiates Screen Not Detected (NotDetected) 12/09/21 13:00 Ur Oxycodone Screen Not Detected (NotDetected) 12/09/21 13:00 Urine Methadone Screen Not Detected (NotDetected) 12/09/21 13:00 Ur Propoxyphene Screen Not Detected (NotDetected) 12/09/21 13:00 Ur Barbiturates Screen Not Detected (NotDetected) 12/09/21 13:00 U Tricyclic Antidepress Not Detected (NotDetected) 12/09/21 13:00 Ur Phencyclidine Scrn Not Detected (NotDetected) 12/09/21 13:00 Ur Amphetamines Screen Not Detected (NotDetected) 12/09/21 13:00 U Methamphetamines Scrn Not Detected (NotDetected) 12/09/21 13:00 U Benzodiazepines Scrn Detected (NotDetected) H 12/09/21 13:00 Urine Cocaine Screen Detected (NotDetected) H 12/09/21 13:00 U Marijuana (THC) Screen Detected (NotDetected) H 12/09/21 13:00 Coronavirus (PCR) Not Detected (Not Detectd) 12/09/21 20:31 Vital Signs Temp 97.2 F L 12/12/21 08:37 Pulse 88 12/12/21 08:37 Resp 18 12/12/21 08:37 BP 137/81 12/12/21 08:37 Pulse Ox 97 12/12/21 08:37 Patient Condition at Discharge: Stable Plan - Discharge Summary New Discharge Prescriptions: New DULoxetine HCL [Cymbalta] 60 mg PO DAILY 30 Days Nicotine 14Mg/24Hr Patch [Habitrol] 1 patch TRANSDERM DAILY 14 Days patch QUEtiapine [SEROquel] 100 mg PO HS 30 Days tab Discharge Medication List DULoxetine HCL [Cymbalta] 60 mg PO DAILY 30 Days 12/12/21 [Rx] Nicotine 14Mg/24Hr Patch [Habitrol] 1 patch TRANSDERM DAILY 14 Days patch 12/12/21 [Rx] QUEtiapine [SEROquel] 100 mg PO HS 30 Days tab 12/12/21 [Rx] Follow up Appointment(s)/Referral(s): [facility] [Outside] - 12/18/21 11:00 am (with intake) Leonid Mendenhall DO [Primary Care Provider] - 1-2 days Patient Instructions/Handouts: How to Stop Smoking (DC), Depression (DC) Activity/Diet/Wound Care/Special Instructions: Activity and diet as tolerated. Avoid the use of street drugs and alcohol. Take all medications as prescribed. When you are in need of refills on your medications please contact your medical provider and/or outpatient psychiatrist to have this done. Please go to scheduled outpatient appointment for aftercare treatment. If symptoms return or become worse, call the crisis line at and/or go to the nearest emergency room for evaluation Discharge Disposition: HOME SELF-CARE
== END 2021-12-12 13:10 | disposition home or self-care (01) | DRG 885 ==
LOC: EC 12:22 → 3MHU 19:54
PROVIDERS: ADMIT Psychiatry & Neurology Psychiatry; ATTEND Psychiatry & Neurology Psychiatry
DX: F25.1 Schizoaffective disorder, depressive type (principal); R45.851 Suicidal ideations; F12.10 Cannabis abuse, uncomplicated; F14.10 Cocaine abuse, uncomplicated; F17.200 Nicotine dependence, unspecified, uncomplicated; F41.9 Anxiety disorder, unspecified; G47.00 Insomnia, unspecified; Z20.822 Contact with and (suspected) exposure to COVID-19; Z79.899 Other long term (current) drug therapy; Z82.49 Family history of ischemic heart disease and other diseases of the circulatory system; Z86.711 Personal history of pulmonary embolism; Z91.14 Patient's other noncompliance with medication regimen
CPT/HCPCS: 80053; 80061; 80306; 83036; 84443; 85025; 87635; 99285

== ENCOUNTER 2023-02-24 12:13 | Observation (INO) | payer MEDICARE, OTHER ==
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
[2023-02-24 12:46] LABS: Basophils % (A) 0 %; Eosinophils # (A) 0.1 k/uL (0-0.7); Eosinophils % (A) 2 %; HCT 45.5 % (39.0-53.0); HGB 15.4 gm/dL (13.0-17.5); Lymphocytes # (A) 2.1 k/uL (1.0-4.8); Lymphocytes % (A) 27 %; MCHC 33.8 g/dL (31.0-37.0); MCV 85.8 fL (80.0-100.0); Mean Platelet Volume 7.7; Monocytes # (A) 0.4 k/uL (0-1.0); Monocytes % (A) 5 %; Neutrophils # (A) 5.1 k/uL (1.3-7.7); Neutrophils % (A) 65 %; Platelet Count 246 k/uL (150-450); WBC 7.8 k/uL (3.8-10.6)
[2023-02-24 12:55] LABS: INR 0.9 (<1.2); Partial Thromboplastin Time 27.6 sec (22.0-30.0); Prothrombin Time 10.1 sec (9.0-12.0)
[2023-02-24 13:11] LABS: ALT 29 U/L (4-49); AST 33 U/L (17-59); African American GFR (CKD) >90 (>60 ml/min/1.73 sqM); Albumin 5.1 g/dL (3.5-5.0); Alkaline Phosphatase 88 U/L (38-126); Anion Gap 12 mmol/L; Blood Urea Nitrogen 17 mg/dL (9-20); Calcium 10.6 mg/dL (8.4-10.2); Carbon Dioxide 26 mmol/L (22-30); Chloride 102 mmol/L (98-107); Glucose 121 mg/dL (74-99); Magnesium 2.2 mg/dL (1.6-2.3); Non-African American GFR(CKD) >90 (>60 ml/min/1.73 sqM); Potassium 4.3 mmol/L (3.5-5.1); Sodium 140 mmol/L (137-145); Total Bilirubin 0.9 mg/dL (0.2-1.3); Total Protein 8.8 g/dL (6.3-8.2)
[2023-02-24] MEDS ORDERED: NITROGLYCERIN SL TABS 0.4 MG TAB SUBLINGUAL STA (14:21)
[2023-02-24] MEDS ORDERED: ASPIRIN 81 MG PO STA (14:21)
[2023-02-24] MEDS ORDERED: ONDANSETRON 4 MG/2 ML VIAL IVP STA (14:54)
--- NOTE | 2023-02-24 15:19 | XR ---
EXAMINATION TYPE: XR chest 2V DATE OF EXAM: 02/24/2023 3:12 PM COMPARISON: Chest radiographs from 12/21/2017 TECHNIQUE: XR chest 2V Frontal and lateral views of the chest. CLINICAL INDICATION:Male, 52 years old with history of chest pain; FINDINGS: Lungs/Pleura: There is no evidence of pleural effusion, focal consolidation, or pneumothorax. Pulmonary vascularity: Unremarkable. Heart/mediastinum: Cardiomediastinal silhouette is unremarkable. Musculoskeletal: No acute osseous pathology. Old right-sided rib fractures which have callus formatio n. Other findings: None IMPRESSION: 1. No acute cardiopulmonary disease/process. 2. Remote appearing right rib fractures.
[2023-02-24] MEDS ORDERED: NITROGLYCERIN SL TABS 0.4 MG TAB SUBLINGUAL PRN (15:51)
[2023-02-24 17:54] LABS: Glucose,Whole Blood 157 mg/dL (70-110)
[2023-02-24 20:50] LABS: Glucose,Whole Blood 115 mg/dL (70-110)
[2023-02-25] MEDS ORDERED: ONDANSETRON 4 MG/2 ML VIAL IVP PRN ×2 (08:48)
[2023-02-25] MEDS ORDERED: ASPIRIN 325 MG TAB PO SCH (09:00)
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
[2023-02-25 09:21] LABS: Chol/HDL Ratio 5.58 Ratio; LDL Cholesterol,Calculated 217.2 mg/dL (0.0-131.0)
[2023-02-25] MEDS ORDERED: KETOROLAC 15 MG/ML 1 ML VIAL IVP STA (10:19)
--- NOTE | 2023-02-25 10:55 | US ---
EXAMINATION TYPE: US abdomen complete DATE OF EXAM: 02/25/2023 Exam done portable COMPARISON: NONE CLINICAL INDICATION: Male, 52 years old with history of LUQ pain; Abdomen pain x 1 day TECHNIQUE: Multiple sonographic images of the abdomen are obtained. FINDINGS: EXAM MEASUREMENTS: Liver Length: 14.5 cm Gallbladder Wall: 0.2 cm CBD: 0.4 cm Spleen: 9.8 cm Right Kidney: 10.0 x 4.5 x 4.8 cm Left Kidney: 10.5 x 5.4 x 4.4 cm Pancreas: visualized portions wnl, limited by overlying midline bowel gas Liver: wnl Gallbladder: multiple mobile stones seen Evidence for sonographic Montero's sign: yes CBD: wnl Spleen: wnl Right Kidney: wnl Left Kidney: wnl Upper IVC: wnl Abd Aorta: wnl IMPRESSION: Cholelithiasis with no evidence of wall thickening or biliary dilation.
[2023-02-25] MEDS: PANTOPRAZOLE 40 MG/10 ML VIAL IVP SCH (11:38)
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
[2023-02-25] MEDS: KETOROLAC 15 MG/ML 1 ML VIAL IVP SCH ×2 (16:34→20:10)
[2023-02-25] MEDS: IOPAMIDOL CONTRAST (ORAL USE) VIAL PO PRN ×2 (16:42→17:45)
--- NOTE | 2023-02-25 16:44 | NM ---
EXAMINATION TYPE: NM hepatobiliary w CCK DATE OF EXAM: 02/25/2023 COMPARISON: NONE INDICATION: Abdominal pain TECHNIQUE: After the intravenous administration of 5.1 mCi Tc 99m Mebrofenin hepatobiliary scintigrap hy is performed. Images were obtained immediately post injection. FINDINGS: There is prompt uptake and excretion of radiotracer by the liver. Extrahepatic ducts are identified at 10 minutes. The gallbladder is visualized within 12 minutes. Small bowel activity is noted within 30 minutes. At one hour CCK was administered, patient was injected with 1.7 mcg of Kinevac, and gallbladder eject ion fraction is calculated at 72 %, which is in the normal range.. (Normal >35% and <80%.). IMPRESSION: 1. Normal hepatobiliary scan.
--- NOTE | 2023-02-25 18:44 | CT ---
EXAMINATION TYPE: CT abdomen pelvis wo con CT DLP: 566.8 mGycm, Automated exposure control for dose reduction was used. DATE OF EXAM: 02/25/2023 6:28 PM COMPARISON: None CLINICAL INDICATION:Male, 52 years old with history of abdominal pain; generalized abd pain TECHNIQUE: Axial CT of the abdomen and pelvis. Sagittal and coronal reformats were created on a [employer] workstation. Contrast used: None Oral contrast used: with Oral Contrast FINDINGS: LOWER CHEST: Some calcification with pleural thickening along the right superior diaphragm. ABDOMEN LIVER: Unremarkable GALLBLADDER AND BILE DUCTS: Layering increased densities within the lumen consistent with gallstones are present. PANCREAS: Unremarkable. SPLEEN: Unremarkable. ADRENAL GLANDS: Unremarkable. KIDNEYS AND URETERS: No evidence of hydronephrosis. There is left nonobstructing 3 mm calculus. No ri ght renal calculus. The ureters are unremarkable. PELVIS BLADDER: Unremarkable REPRODUCTIVE: Prostate is enlarged in size measuring 4.7 cm in transverse dimension. ABDOMEN & PELVIS STOMACH AND BOWEL: No evidence of bowel obstruction. The appendix is normal PERITONEUM/RETROPERITONEUM: No evidence of pneumoperitoneum or free fluid. VASCULATURE: No evidence of aortic aneurysm. MUSCULOSKELETAL: No acute osseous abnormalities. Mild disc degeneration changes are present throughou t the thoracolumbar spine. LYMPH NODES: No gross evidence for lymphadenopathy. SOFT TISSUE/ABDOMINAL WALL: Small fat-containing inguinal hernia on the left. IMPRESSION: 1. No evidence for acute abdominal process., Normal appendix. No bowel obstruction. Normal pancreas. No obstructive uropathy. 2. Some calcification with pleural thickening along the right superior diaphragm. Finding could repr esent prior asbestos exposure. 3. Prostatomegaly correlate with serum PSA. 4. Nonobstructing left renal calculus. 5. Cholelithiasis.
[2023-02-26 02:47] VITALS: RESP 16
[2023-02-26] MEDS: KETOROLAC 15 MG/ML 1 ML VIAL IVP SCH ×2 (03:32→08:53)
[2023-02-26] MEDS: PANTOPRAZOLE 40 MG/10 ML VIAL IVP SCH (08:53)
[2023-02-26 09:01] VITALS: PULSE 52
--- NOTE | 2023-02-26 09:12 | P.PN ---
Subjective Progress Note Date: 02/26/23 History of present illness: This is a 52-year-old male with no previous cardiac history. We have been asked to evaluate the patient for chest pain. He gives history of feeling uncomfortable with sweating and feeling hot with abdominal pain he states he has significant pain when he defecates. He has also had chest pain with nausea and pain goes into the right side of his neck and arm. In 2013, patient underwent dobutamine stress test which was abnormal he subsequently underwent cardiac catheterization with Dr. Orlando which found normal coronary arteries. Patient is an active smoker one pack per day along with marijuana use as well as smoking regularly. He uses alcohol occasionally. EKG sinus rhythm with no acute ST changes Chest x-ray: No acute process CBC, INR, d-dimer, electrolytes and renal function all within normal limits. Blood sugar 115. Calcium 10.6. Liver function tests are normal. Troponins negative 3. ProBNP 43. Home cardiac medications: None 02/26 Patient is seen today in follow-up. Echocardiogram will be obtained today. Patient states he continues to have abdominal pain but it is improved. He continues to have nausea. He has been worked up by general surgery with plan for colonoscopy on Wednesday. Heart rate is in the 50s, blood pressure 132/71. Physical examination: Gen: This is a 52-year-old male. He is resting in bed, appears quite uncomfortable. VS: reviewed HEENT: Head is atraumatic, normocephalic. Pupils equal, round. Sclerae is anic teric. NECK: Supple. No JVD. . LUNGS: Clear to auscultation. No wheezes or rhonchi. No intercostal retractions. HEART: Regular rate and rhythm. No murmur. EXTREMITIES: No pedal edema. No calf tenderness. NEUROLOGICAL: Patient is awake, alert and oriented x3. Assessment: Abdominal pain Chest pain, noncardiac, acute coronary syndrome ruled out Plan: Obtain 2-D echocardiogram and Doppler study to assess cardiac structure and function Cardiology will sign off and follow on an as-needed basis. Please reconsult for any new concerns. Nurse practitioner note has been reviewed, I agree with documented findings and plan of care. Patient was seen and examined. Objective - Vital Signs Vital signs: Vital Signs Temp 97.8 F 02/26/23 02:00 Pulse 59 L 02/26/23 02:00 Resp 16 02/26/23 02:00 BP 132/78 02/26/23 02:00 Pulse Ox 98 02/26/23 02:00 FiO2 21 02/24/23 20:00 Intake & Output 02/25/23 02/26/23 02/26/23 18:59 06:59 18:59 Other: Voiding Method Toilet Toilet # Voids 1 2 - Labs CBC & Chem 7: 02/24/23 12:30 02/24/23 12:30 Labs: Abnormal Lab Results - Last 24 Hours (Table) 02/24/23 Range/Units 12:30 Cholesterol 290.00 H (0.00-200.00) mg/dL LDL Cholesterol, Calc 217.2 H (0.0-131.0) mg/dL
--- NOTE | 2023-02-26 10:25 | CA ---
Transthoracic Echo Report Name: Natalie Anderson Age: 52 Gender: M : 1970 Exam Date: 02/26/2023 09:02 Exam Location: [facility] Ht (in): 73 Wt (lb): 183 Ordering Physician: Ofe Pastor Attending/Referring Phys: [id number], Darby Sod Stripper Janie Polk, MADHAVI Procedure CPT: Indications: LVF Cardiac Hx: Technical Quality: Fair Contrast 1: Total Dose (mL): Contrast 2: Total Dose (mL): MEASUREMENTS (Male / Female) Normal Values 2D ECHO LV Diastolic Diameter PLAX 4.5 cm 4.2 - 5.9 / 3.9 - 5.3 cm LV Systolic Diameter PLAX 3.3 cm IVS Diastolic Thickness 1.1 cm 0.6 - 1.0 / 0.6 - 0.9 cm LVPW Diastolic Thickness 1.1 cm 0.6 - 1.0 / 0.6 - 0.9 cm LV Relative Wall Thickness 0.5 RV Internal Dim ED PLAX 3.0 cm LA Volume 38.0 cm??? 18 - 58 / 22 - 52 cm??? M-MODE Aortic Root Diameter MM 2.7 cm LA Systolic Diameter MM 3.4 cm LA Ao Ratio MM 1.3 DOPPLER AV Peak Velocity 159.7 cm/s AV Peak Gradient 10.2 mmHg AV Mean Velocity 106.8 cm/s AV Mean Gradient 5.1 mmHg AV Velocity Time Integral 32.9 cm LVOT Peak Velocity 102.6 cm/s LVOT Peak Gradient 4.2 mmHg LVOT Velocity Time Integral 22.3 cm MV Area PHT 2.4 cm??? Mitral E Point Velocity 87.5 cm/s Mitral A Point Velocity 60.9 cm/s Mitral E to A Ratio 1.4 MV Deceleration Time 318.4 ms MV E' Velocity 14.5 cm/s Mitral E to MV E' Ratio 6.0 TR Peak Velocity 239.8 cm/s TR Peak Gradient 23.0 mmHg Right Ventricular Systolic Press 26.8 mmHg FINDINGS Left Ventricle Left ventricular cavity size normal. Mildly increased left ventricular wall thickness. Normal left ventricular systolic function with no obvious regional wall motion abnormalities. Left ventricular ejection fraction is estimated at 55-60 %. Right Ventricle Normal right ventricular size and function. Right ventricular systolic pressure within normal limits. Right Atrium Normal right atrial size. Left Atrium Normal left atrial size. Mitral Valve Structurally normal mitral valve. Mild mitral regurgitation. Aortic Valve No aortic valve stenosis or regurgitation. Tricuspid Valve Structurally normal tricuspid valve. Mild tricuspid regurgitation. Pulmonic Valve Trace pulmonic regurgitation. Pericardium No pericardial effusion. Aorta Normal size aortic root and proximal ascending aorta. CONCLUSIONS Normal LV size and systolic function. Mild mitral and tricuspid regurgitation. No pericardial effusion no pulmonary hypertension Previewed by: Dr. Lynda Dyer MD (Electronically Signed) Final Date: 26 Feb 2023 10:24
[2023-02-26 10:51] LABS: Basophils # (A) 0.06 X 10*3/uL (0.00-0.10); Basophils % (A) 0.8 %; Eosinophils % (A) 1.4 %; HCT 44.5 % (39.6-50.0); HGB 14.7 g/dL (13.0-17.0); Immature Grans, Automated 0.3 %; Lymphocytes # (A) 2.09 X 10*3/uL (0.90-5.00); Lymphocytes % (A) 28.5 %; MCH 28.4 pg (27.0-32.0); MCV 85.9 fL (80.0-97.0); Mean Platelet Volume 10.4 fL (9.5-12.2); Monocytes # (A) 0.75 X 10*3/uL (0.20-1.00); Monocytes % (A) 10.2 %; NRBC Per 100 WBC 0 /100 WBCS (0.0-0.0); Neutrophils # (A) 4.32 X 10*3/uL (1.80-7.70); Neutrophils % (A) 58.8 %; Platelet Count 247 X 10*3/uL (140-440); RBC 5.18 X 10*6/uL (4.40-5.60); RDW 13.1 % (11.5-14.5); WBC 7.34 X 10*3/uL (4.50-10.00)
[2023-02-26 11:06] LABS: African American GFR (CKD) 90.3 (60.0-200.0); Anion Gap 11.1 mmol/L (10.00-18.00); BUN/Creat Ratio 27.96 Ratio (12.00-20.00); Blood Urea Nitrogen 30.2 mg/dL (9.0-27.0); Calcium 9.6 mg/dL (8.7-10.3); Carbon Dioxide 24.5 mmol/L (20.0-27.5); Magnesium 2.3 mg/dL (1.5-2.4); Potassium 4.4 mmol/L (3.5-5.5)
--- NOTE | 2023-02-26 12:33 | P.PN ---
Subjective Progress Note Date: 02/26/23 CHIEF COMPLAINT: Chest pain and abdominal pain HISTORY OF PRESENT ILLNESS: Surgical service following regards to patient's abdominal pain. Patient continues to complain of pain across the upper abdomen and in the left lower quadrant. Ultrasound had shown evidence of cholelithiasis. Computed tomography scan shows no evidence for acute abdominal process. Does show evidence of cholelithiasis. Some calcification with pleural thickening along the right superior diaphragm findings could represent prior asbestos exposure. Prostatomegaly. Nonobstructing left renal calculus. HIDA scan was normal. Patient does report a poor oral intake. She he denies any vomiting. He is having flatus and loose stools. He does report some pain after eating. Denies any blood in the stools. Afebrile. WBC is 7.34 Hgb 14.7 platelets 247 sounds 142 potassium 4.4 creatinine 1.1. Patient seen evaluated by cardiology regarding chest pain no acute coronary syndrome. They have signed off. Patient seen and examined with Dr. Cabral PHYSICAL EXAM: VITAL SIGNS: Reviewed. GENERAL: Well-developed in no acute distress. HEENT: No sclera icterus. Extraocular movements grossly intact. Moist buccal mucosa. Head is atraumatic, normocephalic. ABDOMEN: Soft. Nondistended. Tenderness across the upper abdomen. Tenderness in the left lower quadrant. Mildly distended. NEUROLOGIC: Alert and oriented. Cranial nerves II through XII grossly intact. ASSESSMENT: 1. Abdominal pain across the upper abdomen and left lower quadrant tenderness 2. Cholelithiasis noted on ultrasound and CT. HIDA normal PLAN: -Patient scheduled for colonoscopy on Wednesday with Dr. cabral -Downgrade diet to full liquids due to abdominal pain after eating -Continue supportive care -Continue to monitor Physician Remediation Technician note has been reviewed by physician. Signing provider agrees with the documented findings, assessment, and plan of care. Objective - Vital Signs Vital signs: Vital Signs Temp 97.6 F 02/26/23 07:35 Pulse 52 L 02/26/23 07:35 Resp 16 02/26/23 07:35 BP 132/71 02/26/23 07:35 Pulse Ox 98 02/26/23 07:35 FiO2 21 02/24/23 20:00 Intake & Output 02/25/23 02/26/23 02/26/23 18:59 06:59 18:59 Intake Total 500 Balance 500 Intake: Oral 500 Other: Voiding Method Toilet Toilet Toilet # Voids 1 2 - Labs CBC & Chem 7: 02/26/23 05:33 02/26/23 05:33 Labs: Abnormal Lab Results - Last 24 Hours (Table) 02/26/23 Range/Units 05:33 BUN 30.2 H (9.0-27.0) mg/dL BUN/Creatinine Ratio 27.96 H (12.00-20.00) Ratio
[2023-02-26 15:23] VITALS: BP 132/81; TEMP 98.2
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
[2023-02-28] MEDS ORDERED: PEG 3350 (236 GM/BTL) + LYTES 4,000 ML BOTTLE PO ONE (09:00)
== END 2023-02-26 16:48 | disposition home or self-care (01) ==
LOC: EC 12:13 → 6NMEDSUR 15:51
PROVIDERS: ADMIT Hospitalist; ATTEND Hospitalist
DX: R07.89 Other chest pain (principal); K80.20 Calculus of gallbladder without cholecystitis without obstruction; I25.2 Old myocardial infarction; E78.5 Hyperlipidemia, unspecified; F17.200 Nicotine dependence, unspecified, uncomplicated; M54.50 Low back pain, unspecified; G89.29 Other chronic pain; N20.0 Calculus of kidney; F41.9 Anxiety disorder, unspecified; N40.0 Benign prostatic hyperplasia without lower urinary tract symptoms; F14.90 Cocaine use, unspecified, uncomplicated; F12.90 Cannabis use, unspecified, uncomplicated; K40.90 Unilateral inguinal hernia, without obstruction or gangrene, not specified as recurrent; F32.A Depression, unspecified; I08.1 Rheumatic disorders of both mitral and tricuspid valves; I37.1 Nonrheumatic pulmonary valve insufficiency; Z79.899 Other long term (current) drug therapy; Z86.711 Personal history of pulmonary embolism; Z96.622 Presence of left artificial elbow joint; Z63.4 Disappearance and death of family member; Z82.49 Family history of ischemic heart disease and other diseases of the circulatory system; Z63.5 Disruption of family by separation and divorce
CPT/HCPCS: 96376 ×2; 96375; 96374; 99285; 36415; 94760; 93005; 93306; 85379; 83880; 80061; 80053; 80048; 83735 ×2; 84484; 85025 ×2; 85610; 85730; 71046; 76700; 74176; 78227; G0378 ×3; A9537; J2405 ×2; J2805; J1885 ×2; C9113 ×2

== ENCOUNTER → 2023-09-14 | Outpatient (CLI) | payer MEDICARE, OTHER ==
--- NOTE | 2023-09-14 11:28 | CT ---
EXAMINATION TYPE: CT chest wo con DATE OF EXAM: 09/14/2023 COMPARISON: 02/26/2020 HISTORY: abnormal finding CT DLP: 465.[address] of the chest was performed with lung and mediastinal window settings submitted. The la ck of contrast limits evaluation of the vascular, mediastinal and parenchymal structures including th e upper abdomen. LUNGS: Calcified pleural plaques noted. No evidence for infiltrate or volume loss. Parenchymal scarri ng adjacent to a site of prior healed rib fracture right mid lung zone. MEDIASTINUM/LUDWIG: Thoracic aorta is of normal caliber with limited evaluation given lack of contrast . The heart is not enlarged. No evidence for mediastinal mass. No lymph nodes greater than 1cm. UPPER ABDOMEN: Cholelithiasis. OTHER: Multiple healed right-sided rib fractures. IMPRESSION: 1. Calcified pleural plaque right lower lobe as well as pleural parenchymal scarring right midlung z one.
== END ==
LOC: CPPFTMAIN 10:08
PROVIDERS: ATTEND Internal Medicine
DX: J92.9 Pleural plaque without asbestos (principal); F17.200 Nicotine dependence, unspecified, uncomplicated
CPT/HCPCS: 71250; 94060; 94726; 94729

== ENCOUNTER 2024-02-05 16:23 | Emergency (ER) | payer MEDICARE, OTHER ==
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
[2024-02-05] MEDS: SODIUM CHLORIDE 0.9% 1,000 ML IV STA ×2 (16:43→19:37)
[2024-02-05 16:57] VITALS: TEMP 97.6
[2024-02-05 17:22] LABS: Basophils % (A) 0 %; Eosinophils # (A) 0.1 k/uL (0-0.7); Eosinophils % (A) 1 %; HCT 43.2 % (39.0-53.0); HGB 14.7 gm/dL (13.0-17.5); Lymphocytes # (A) 2.7 k/uL (1.0-4.8); Lymphocytes % (A) 20 %; MCH 28.7 pg (25.0-35.0); MCV 84.3 fL (80.0-100.0); Monocytes # (A) 0.7 k/uL (0-1.0); Monocytes % (A) 5 %; Neutrophils # (A) 9.9 k/uL (1.3-7.7); Neutrophils % (A) 73 %; Platelet Count 218 k/uL (150-450); RBC 5.13 m/uL (4.30-5.90); RDW 13.3 % (11.5-15.5); WBC 13.6 k/uL (3.8-10.6)
[2024-02-05 17:35] LABS: ALT 19 U/L (4-49); AST 25 U/L (17-59); African American GFR (CKD) >90 (>60 ml/min/1.73 sqM); Alkaline Phosphatase 65 U/L (38-126); Anion Gap 13 mmol/L; Blood Urea Nitrogen 29 mg/dL (9-20); Carbon Dioxide 15 mmol/L (22-30); Chloride 105 mmol/L (98-107); Glucose 120 mg/dL (74-99); Magnesium 1.7 mg/dL (1.6-2.3); Non-African American GFR(CKD) 83 (>60 ml/min/1.73 sqM); Phosphorus 3.4 mg/dL (2.5-4.5); Potassium 3.2 mmol/L (3.5-5.1); Sodium 133 mmol/L (137-145); Total Bilirubin 0.7 mg/dL (0.2-1.3); Total Protein 6.9 g/dL (6.3-8.2)
[2024-02-05 17:42] LABS: NT-Pro-B-Type Natriuretic Pept 77 pg/mL
[2024-02-05 17:51] LABS: Partial Thromboplastin Time 22.7 sec (22.0-30.0); Prothrombin Time 11.1 sec (10.0-12.5)
[2024-02-05] MEDS: POTASSIUM CHLORIDE ER 20 MEQ TAB.ER PO STA (19:37)
[2024-02-05] MEDS: POTASSIUM BICARBONATE/CIT AC 20 MEQ TABLET.EFF PO ONE (19:37)
--- NOTE | 2024-02-05 19:52 | CT ---
EXAMINATION TYPE: CT brain wo con CT DLP: 1152.4 mGycm, Automated exposure control for dose reduction was used. DATE OF EXAM: 02/05/2024 7:32 PM COMPARISON: None.. CLINICAL INDICATION:Male, 53 years old with history of pain, Syncope, with abdomen and chest pain TECHNIQUE: Brain: Axial CT images of the brain were obtained with coronal and sagittal reformats created and rev iewed. Contrast used: None. Oral contrast used: None. FINDINGS: Extra-axial spaces: No abnormal extra-axial fluid collections. Basilar cisterns are patent. Ventricular system: Within normal limits. Cerebral parenchyma: No increased attenuation to suggest acute intraparenchymal hemorrhage. The gra y-white matter interface appears maintained. No significant atrophy. White matter unremarkable by C T. Cerebellum: No acute abnormality. Mass effect: No evidence of mass effect or midline shift. Intracranial vasculature: Unremarkable Soft tissues: No acute or concerning abnormality. Visualized orbits: Orbital contents appear grossly intact. Calvarium/osseous structures: No evidence of calvarial fracture. Paranasal sinuses and mastoid air cells: Clear. Nasal septal deviation towards the right anteriorly. There is a prominent external occipital protuberance. MRI is more sensitive for detecting acute processes such as infarct, and may be considered if clinica lly warranted. IMPRESSION: No acute intracranial CT abnormality.
--- NOTE | 2024-02-05 20:31 | CT ---
EXAMINATION TYPE: CT angio chest CT DLP: 1914.5 mGycm, Automated exposure control for dose reduction was used. DATE OF EXAM: 02/05/2024 7:42 PM COMPARISON: CT chest 09/14/2023 CLINICAL INDICATION:Male, 53 years old with history of pain; Syncope, with abdomen and chest pain TECHNIQUE/CONTRAST: CTA scan of the thorax is performed with IV Contrast, patient injected with 100 cc mL of Isovue 370, MIP images are created and reviewed these are created on a separate workstation.. FINDINGS: There is adequate contrast bolus and timing. PULMONARY ARTERIES: There is no evidence for a filling defect within the pulmonary vasculature to sug gest acute pulmonary embolism. Pulmonary trunk is normal in size. Trunk measures 2.5 CM. AORTA: Mild atherosclerotic calcifications of the aorta and branches. Ascending aorta is 2.8 CM, flavia cending is 2.5 CM. Aorta is considered within normal limits. No dissection is seen. HEART: Within normal limits with some prominent pericardial fat.. LOWER NECK: No significant findings. MEDIASTINUM: No enlarged nodes by CT size criteria. SOFT TISSUES/AXILLA: Unremarkable soft tissues. No axillary adenopathy. LUNGS/ PLEURA: There is redemonstration of a small calcified pleural plaque in the posterior right jolly ng base, no rib fracture deformities and adjacent pleural/parenchymal changes . No acute infiltrate, pleural effusion, or pneumothorax. AIRWAY: central airways are patent. MUSCULOSKELETAL: No acute osseous abnormality. Mild degenerative changes of the spine. UPPER ABDOMEN: No mass of the visualized adrenals. Multiple faceted gallstones. Mild fatty infiltrati on of the pancreas. IMPRESSION: 1. No evidence of pulmonary embolism. 2. Stable mild chronic changes in the right lung, without evidence of acute cardiopulmonary abnormal ity.
--- NOTE | 2024-02-05 20:49 | CT ---
EXAMINATION TYPE: CT abdomen pelvis w con CT DLP: 1914.5 mGycm, Automated exposure control for dose reduction was used. DATE OF EXAM: 02/05/2024 7:44 PM COMPARISON: None. CLINICAL INDICATION:Male, 53 years old with history of pain; Syncope, with abdomen and chest pain TECHNIQUE: Axial CT of the abdomen and pelvis. Sagittal and coronal reformats were created on a [employer] workstation. Contrast used:100 cc mL of Isovue 370 with IV Contrast, (none if empty) Oral contrast used: without Oral Contrast (none if empty) FINDINGS: LOWER CHEST: Please refer to separate same day CT angio chest ABDOMEN LIVER: Unremarkable GALLBLADDER AND BILE DUCTS: Multiple faceted gallstones within the gallbladder, gallbladder is not di stended and no discrete inflammatory changes are seen. Biliary tree appears nondilated. PANCREAS: Mild fatty infiltration without acute findings SPLEEN: Unremarkable. ADRENAL GLANDS: Unremarkable. KIDNEYS AND URETERS: Kidneys enhance symmetrically. No evidence of hydronephrosis or visible renal ca lculus. The ureters are unremarkable. PELVIS BLADDER: Mildly distended and partially filled with contrast. No acute finding. REPRODUCTIVE: Unremarkable prostate. ABDOMEN & PELVIS STOMACH AND BOWEL: Stomach is mildly distended with heterogeneous material, likely food stuffs. Duode nal bulb is mildly prominent. The wall of the duodenal sweep appears thickened with surrounding infla mmatory changes and some mildly enlarged regional lymph nodes. There seems to be possible irregularit y of the wall anteriorly and medially which could indicate ulceration. Continuing distally, the small bowel inflammation is no longer identified and bowel loops are nondistended without evidence of obst ruction. The appendix appears normal. Mild to moderate stool throughout the colon without acute abnor mality demonstrated. There are a few colonic diverticula suggested without evidence of diverticulitis . PERITONEUM/RETROPERITONEUM: No evidence of pneumoperitoneum or free fluid. VASCULATURE: Mild atherosclerotic calcifications are present throughout the abdominal aorta and its b ranches. No evidence of aortic aneurysm. Portal vein, splenic vein, superior mesenteric vein appear patent. IVC appears of normal caliber. LYMPH NODES: No enlarged nodes by CT size criteria. SOFT TISSUE/ABDOMINAL WALL: No acute abnormality. Small fat-containing left inguinal hernia. MUSCULOSKELETAL: No acute osseous abnormalities. Mild disc degeneration changes are present throughou t the thoracolumbar spine. Mild to moderate bilateral hip arthropathy.. IMPRESSION: 1. Inflammatory changes of the duodenum suggestive of duodenitis. Possible peptic ulcer disease. 2. No evidence of bowel obstruction or free air. Normal appendix. 3. Cholelithiasis. No CT evidence of acute cholecystitis.
[2024-02-05 22:07] VITALS: BP 135/70; PULSE 69; RESP 18
== END 2024-02-05 21:27 | disposition home or self-care (01) ==
LOC: EC 16:23
DX: R55 Syncope and collapse (principal); F17.200 Nicotine dependence, unspecified, uncomplicated; F12.90 Cannabis use, unspecified, uncomplicated; F14.90 Cocaine use, unspecified, uncomplicated
CPT/HCPCS: 36415; 93005; 85379; 83880; 80053; 83605; 83735; 84100; 84484; 85025; 85610; 85730; 70450; 71275; 74177; 99285; 96360; 96361 ×2; Q9967

== ENCOUNTER → 2024-03-09 | Outpatient (CLI) | payer MEDICARE, OTHER ==
--- NOTE | 2024-03-11 15:54 | CT ---
EXAMINATION TYPE: CT heart w calcium score DATE OF EXAM: 03/09/2024 COMPARISON: None HISTORY: Screening for cardiovascular disorder. 213.9 CT DLP: 103.8 mGycm Automated exposure control for dose reduction was used. CT CALCIUM SCORING Coronary calcium is a marker for plaque (fatty deposits) in a blood vessel or atherosclerosis (harden ing of the arteries). The presence and amount of calcium detected in a coronary artery by the CT sca n, indicates the presence and amount of atherosclerotic plaque. These calcium deposits appear years before the development of heart disease symptoms such as chest pain and shortness of breath. A calcium score is computed for each of the coronary arteries based upon the volume and density of th e calcium deposits. This can be referred to as your calcified plaque burden. It does not correspond directly to the percentage of narrowing in the artery but does correlate with the severity of the un derlying coronary atherosclerosis. PROCEDURE TECHNIQUE - Prospective Gating was used. Slice thickness: 3mm. Density threshold (HU): 130, Pixel threshold: 3, Algorithm: discrete. RESULTS Region: LM Calcium Score ([place]): 1.74 Volume (mm3): 5.23 Mass (g): 1.74 Region: RCA Calcium Score ([place]): 0 Volume (mm3): 0 Mass (g): 0 Region: LAD Calcium Score ([place]): 43.18 Volume (mm3): 34.68 Mass (g): 11.56 Region: CX Calcium Score ([place]): 62.16 Volume (mm3): 60.19 Mass (g): 20.06 Region: PDA Calcium Score ([place]): 0 Volume (mm3): 0 Mass (g): 0 Total: Calcium Score ([place]): 107.08 Volume (mm3): 100.1 Mass (g): 33.37 TOTAL CALCIUM SCORE: 107.08 IMPRESSION: Calcium Score: 107.08 Implication: At least moderate atherosclerotic plaquing is within the coronary vessels. Some clinica lly significant stenosis may be present. Consider additional workup. Risk of Coronary Artery Disease: At least moderately significant stenosis likely present Impression: 1. Atheromatous plaquing with significant narrowing of vessels possible. Consider additional workup. CALCIUM SCORE IMPLICATION RISK OF C ORONARY ARTERY DISEASE 0 No identifiable plaque Very low, generally less than 5% 1-10 Minimal identifiable plaque Very unlikely, less than 10% 11-100 Definite, at least mild atherosclerotic plaque Mild or m inimal coronary narrowings likely 101-400 Definite, at least moderate atherosclerotic plaque Mild coronary ar nina disease highly likely, significant narrowing possible 401 or Higher Extensive atherosclerotic plaque High lik elihood of at least one significant coronary narrowing
== END | disposition home or self-care (01) ==
LOC: RADCTMAIN 12:15
PROVIDERS: ATTEND Family Medicine
DX: Z13.6 Encounter for screening for cardiovascular disorders (principal); I25.10 Atherosclerotic heart disease of native coronary artery without angina pectoris; E78.2 Mixed hyperlipidemia
CPT/HCPCS: 75571

== ENCOUNTER 2024-03-23 14:21 | Observation (INO) | payer MEDICARE, OTHER ==
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
--- NOTE | 2024-03-23 15:09 | XR ---
EXAMINATION TYPE: XR chest 2V DATE OF EXAM: 03/23/2024 COMPARISON: NONE TECHNIQUE: PA and lateral views submitted. HISTORY: Pain FINDINGS: The lungs are clear and there is no pneumothorax, pleural effusion, or focal pneumonia. Heart size normal and no overt failure. Osseous structures demonstrate hypertrophic and degenerative changes of the spine. Emphysematous changes. Chronic rib deformities on the right noted. IMPRESSION: 1. No acute process.
[2024-03-23 15:17] LABS: ALT 20 U/L (4-49); AST 23 U/L (17-59); African American GFR (CKD) >90 (>60 ml/min/1.73 sqM); Albumin 4.3 g/dL (3.5-5.0); Alkaline Phosphatase 68 U/L (38-126); Anion Gap 6 mmol/L; Blood Urea Nitrogen 24 mg/dL (9-20); Calcium 9.5 mg/dL (8.4-10.2); Carbon Dioxide 23 mmol/L (22-30); Chloride 109 mmol/L (98-107); Glucose 104 mg/dL (74-99); INR 0.9 (<1.2); Magnesium 1.7 mg/dL (1.6-2.3); Non-African American GFR(CKD) >90 (>60 ml/min/1.73 sqM); Partial Thromboplastin Time 26.4 sec (22.0-30.0); Prothrombin Time 10.5 sec (10.0-12.5); Sodium 138 mmol/L (137-145); Total Bilirubin 0.5 mg/dL (0.2-1.3)
[2024-03-23 15:42] LABS: Basophils # (A) 0.1 k/uL (0-0.2); Basophils % (A) 1 %; Eosinophils # (A) 0.1 k/uL (0-0.7); Eosinophils % (A) 1 %; HCT 39.8 % (39.0-53.0); HGB 13.2 gm/dL (13.0-17.5); Lymphocytes # (A) 1.7 k/uL (1.0-4.8); Lymphocytes % (A) 22 %; MCH 28.8 pg (25.0-35.0); MCHC 33.3 g/dL (31.0-37.0); MCV 86.5 fL (80.0-100.0); Mean Platelet Volume 8.3; Monocytes # (A) 0.6 k/uL (0-1.0); Monocytes % (A) 7 %; Neutrophils # (A) 5.1 k/uL (1.3-7.7); Neutrophils % (A) 68 %; Platelet Count 205 k/uL (150-450); RDW 13.7 % (11.5-15.5); WBC 7.6 k/uL (3.8-10.6)
[2024-03-23] MEDS ORDERED: NITROGLYCERIN SL TABS 0.4 MG TAB SUBLINGUAL PRN (19:31)
[2024-03-23] MEDS: ASPIRIN 81 MG PO STA (19:52)
[2024-03-23] MEDS ORDERED: NALOXONE 0.4 MG/ML 1 ML VIAL IV PRN (20:17)
[2024-03-23] MEDS: IPRATROPIUM-ALBUTEROL 3 ML NEB INHALATION STA (21:50)
[2024-03-24] MEDS: QUEtiapine 100 MG TAB PO SCH (00:11)
[2024-03-24] MEDS: ATORVASTATIN 40 MG TAB PO SCH (00:11)
[2024-03-24 07:04] VITALS: RESP 18
[2024-03-24] MEDS: ASPIRIN 81 MG PO SCH (09:43)
[2024-03-24 10:35] LABS: LDL Cholesterol,Calculated 86.6 mg/dL (0.0-131.0); VLDL Calculation 14.76 mg/dL (5.00-40.00)
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
[2024-03-24] MEDS ORDERED: ALBUTEROL NEBULIZED 2.5 MG/3 ML INHALATION PRN (10:58)
--- NOTE | 2024-03-24 11:22 | CA ---
Transthoracic Echo Report Name: Natalie Anderson Age: 53 Gender: M : 1970 Exam Date: 03/24/2024 10:28 Exam Location: [place] [facility] Ht (in): 73 Wt (lb): 216 Ordering Physician: Eusebio Mac MD ([id number]) Attending/Referring Phys: Transport Tank Technician Syl Kendall RDCS Procedure CPT: Indications: CP Cardiac Hx: Technical Quality: Fair Contrast 1: Total Dose (mL): Contrast 2: Total Dose (mL): MEASUREMENTS (Male / Female) Normal Values 2D ECHO LV Diastolic Diameter PLAX 5.4 cm 4.2 - 5.9 / 3.9 - 5.3 cm LV Systolic Diameter PLAX 3.7 cm IVS Diastolic Thickness 0.7 cm 0.6 - 1.0 / 0.6 - 0.9 cm LVPW Diastolic Thickness 0.8 cm 0.6 - 1.0 / 0.6 - 0.9 cm LV Relative Wall Thickness 0.3 LV Diastolic Volume MOD 4C 142.5 cm??? LV Systolic Volume MOD 4C 68.5 cm??? LV Ejection Fraction MOD 4C 51.9 % LV Diastolic Length 4C 8.7 cm LV Systolic Length 4C 7.4 cm LV Diastolic Volume MOD 2C 171.2 cm??? LV Systolic Volume MOD 2C 68.3 cm??? LV Ejection Fraction MOD 2C 60.1 % LV Diastolic Length 2C 9.7 cm LV Systolic Length 2C 7.5 cm M-MODE Aortic Root Diameter MM 2.1 cm LA Systolic Diameter MM 1.9 cm LA Ao Ratio MM 0.9 DOPPLER AV Peak Velocity 127.5 cm/s AV Peak Gradient 6.5 mmHg AV Mean Gradient 3.5 mmHg AV Velocity Time Integral 28.3 cm LVOT Peak Velocity 111.1 cm/s LVOT Peak Gradient 4.9 mmHg LVOT Velocity Time Integral 23.6 cm Mitral E Point Velocity 75.5 cm/s Mitral A Point Velocity 56.7 cm/s Mitral E to A Ratio 1.3 MV Deceleration Time 266.2 ms FINDINGS Left Ventricle Left ventricular ejection fraction is estimated at 55-60 %. Left ventricular cavity size normal. No obvious regional wall motion abnormalities. Left ventricular cavity size normal. Right Ventricle Normal right ventricular size and function. Right ventricular systolic pressure within normal limits. Right Atrium Normal right atrial size. Left Atrium Normal left atrial size. Mitral Valve Structurally normal mitral valve. Trace to mild mitral regurgitation. No mitral stenosis. Aortic Valve Trileaflet aortic valve. No aortic valve stenosis or regurgitation. Tricuspid Valve Structurally normal tricuspid valve. Trace tricuspid regurgitation. Pulmonic Valve Structurally normal pulmonic valve. Trace pulmonic regurgitation. No pulmonic regurgitation. Pericardium No pericardial or pleural effusion. Aorta Normal size aortic root and proximal ascending aorta. CONCLUSIONS Preserved LV send stock function without any wall motion abnormalities Prominent posterior pericardial stripe Previewed by: Dr. Eusebio Mac MD (Electronically Signed) Final Date: 24 March 2024 11:21
[2024-03-24 13:59] VITALS: BP 142/77; PULSE 56; TEMP 98
[2024-03-24] MEDS: HYDROcodone/APAP 5-325MG 1 EACH TAB PO PRN (14:23)
== END 2024-03-24 15:09 | disposition home or self-care (01) ==
LOC: EC 14:21 → 6NMEDSUR 20:54
PROVIDERS: ADMIT Hospitalist; ATTEND Hospitalist
DX: R07.89 Other chest pain (principal); I25.10 Atherosclerotic heart disease of native coronary artery without angina pectoris; F32.A Depression, unspecified; F41.9 Anxiety disorder, unspecified; F17.200 Nicotine dependence, unspecified, uncomplicated; I25.2 Old myocardial infarction; Z86.711 Personal history of pulmonary embolism; Z79.899 Other long term (current) drug therapy
CPT/HCPCS: 99285; 36415; 94640; 93005; 93306; 85379; 80053; 80061; 83735; 84484; 85025; 85610; 85730; 83036; 71046; G0378 ×2

== ENCOUNTER → 2024-07-03 | Outpatient (CLI) | payer MEDICARE, OTHER ==
--- NOTE | 2024-07-10 17:53 | MR ---
EXAMINATION TYPE: MR danyelleine/nikolai wo con DATE OF EXAM: 07/03/2024 COMPARISON: None HISTORY: Neck and low back pain CONTRAST: Performed utilizing 0 mL intravenous Gadavist gadolinium contrast. TECHNIQUE: Multiplanar multiecho imaging on a 3.0 Eva magnet is performed through the cervical spin e. FINDINGS: The craniovertebral junction is normal. Vertebral body alignment is normal. C7-T1: Mild disc bulge is present slightly greater to the left paracentral region. This may have jose e cord contact. Mild cord deformity appears to be present in the axial plane. No AP spinal canal sten osis present. Right foraminal narrowing from uncovertebral joint hypertrophy is present.. C6-7: There is a large left paracentral disc herniation with significant anterior thecal sac compress ion and cord contact with cord compression. AP spinal canal stenosis is present. Bilateral severe for aminal narrowing is present.. C5-6: Broad-based disc bulging is present with anterior thecal sac compression. This is greater to th e left paracentral region with moderate anterior thecal sac compression and cord contact. Cord deform ity is not identified. Bilateral foraminal narrowing is present.. C4-5: Broad-based disc bulges anterior thecal sac flattening. No AP spinal canal stenosis present. Ne ural foraminal narrowing is present.. C3-4: Small left and right paracentral disc bulges are present with mild anterior thecal sac compress ion. No cord contact or cord deformity is evident. Uncovertebral joint hypertrophy is moderate bilate ral foraminal stenosis.. C2-3: No focal disc herniation or significant disc bulge is evident. No spinal canal stenosis or judith ral foraminal stenosis is present. IMPRESSION: 1. Large left C6-C7 paracentral disc herniation with cord contact and cord compression. Signal abnorm ality at this level and extending posterior to the C7 vertebral body is present. Spinal canal stenosi s is present. 2. Broad-based disc herniation at C5-6 greater in the left paracentral region with moderate anterior thecal sac compression and cord contact. 3. Multilevel foraminal stenosis present C3-4 through C7-T1 EXAMINATION TYPE: MR danyelleine/nikolai wo con DATE OF EXAM: 07/03/2024 COMPARISON: None HISTORY: Neck and low back pain CONTRAST: 0 mL intravenous Gadavist. TECHNIQUE: Multiplanar, multisequence images of the lumbar spine were acquired. FINDINGS: Cord terminates at the L1 level. Disc desiccation is present L5-S1. L5-S1: Tiny central protrusion is present. No thecal sac contact is evident. Facet hypertrophy is pre sent. No spinal canal stenosis is present. Neural foramen are patent. L4-L5: No significant disc bulge or disc herniation. Facet hypertrophy with ligamentum flavum laxity is present. This is contributing to spinal canal narrowing. No AP spinal canal stenosis is present. Neural foramen are patent L3-L4: No significant disc bulge or disc herniation. No spinal canal stenosis. No foraminal stenosi s. Mild facet hypertrophy is present L2-L3: No significant disc bulge or disc herniation. No spinal canal stenosis. No foraminal stenosi s. L1-L2: No significant disc bulge or disc herniation. No spinal canal stenosis. No foraminal stenosi s. T12-L1: No significant disc bulge or disc herniation. No spinal canal stenosis. No foraminal stenos is. IMPRESSION: 1. Facet hypertrophy and ligamentum flavum laxity narrowing the spinal canal at L4-5. [facility], , 07/10/2024 5:51 PM
== END | disposition home or self-care (01) ==
LOC: RADMRIMAIN 12:59
PROVIDERS: ATTEND Family Medicine
DX: M47.817 Spondylosis without myelopathy or radiculopathy, lumbosacral region (principal); M48.061 Spinal stenosis, lumbar region without neurogenic claudication; M50.23 Other cervical disc displacement, cervicothoracic region; M47.813 Spondylosis without myelopathy or radiculopathy, cervicothoracic region; M48.02 Spinal stenosis, cervical region; M43.8X2 Other specified deforming dorsopathies, cervical region; R29.6 Repeated falls
CPT/HCPCS: 72141; 72148

== ENCOUNTER → 2024-08-09 | Outpatient (CLI) | payer MEDICARE, OTHER ==
[2024-08-09 10:10] LABS: INR 0.9 (<1.2); Partial Thromboplastin Time 28.3 sec (22.0-30.0); Prothrombin Time 10.4 sec (10.0-12.5)
[2024-08-09 10:15] LABS: Appearance,Urine Clear (Clear); Bilirubin,Urine Negative (Negative); Blood,Urine Small (Negative); Color,Urine Light Yellow; Glucose,Urine (UA) Negative (Negative); Ketones,Urine Negative (Negative); Leukocyte Esterase,Urine Negative (Negative); Mucus,Urine Rare /hpf; Nitrite,Urine Negative (Negative); PH, Urine 6.5 (5.0-8.0); Protein,Urine Negative (Negative); RBC,Urine 7 /hpf (0-5); Specific Gravity,Urine 1.021 (1.001-1.035); Squamous Epithelial Cell,Urine 1 /hpf (0-4); Urobilinogen,Urine <2.0 mg/dL (<2.0); WBC,Urine 1 /hpf (0-5)
--- NOTE | 2024-08-09 11:04 | XR ---
EXAMINATION TYPE: XR chest 2V DATE OF EXAM: 08/09/2024 9:31 AM COMPARISON: 03/23/2024 CLINICAL INDICATION: Male, 54 years old with history of M48.02 CERVICAL SPINAL STENOSIS; [facility] TECHNIQUE: XR chest 2V Frontal and lateral views of the chest. FINDINGS: Lungs/Pleura: There is no evidence of pleural effusion, focal consolidation, or pneumothorax. Pulmonary vascularity: Unremarkable. Heart/mediastinum: Cardiomediastinal silhouette is unremarkable. Musculoskeletal: No acute osseous pathology. Right-sided remote rib injuries. Other findings: None IMPRESSION: No acute cardiopulmonary disease/process. [facility], , 08/09/2024 11:01 AM
[2024-08-09 16:06] LABS: HCT 42.4 % (39.6-50.0); HGB 13.9 g/dL (13.0-17.0); MCHC 32.8 g/dL (32.0-37.0); MCV 85.3 FL (80.0-97.0); Mean Platelet Volume 10.9 FL (9.5-12.2); NRBC Per 100 WBC 0 X 10*3/uL (0.00-0.01); Platelet Count 281 X 10*3/uL (140-440); RBC 4.97 X 10*6/uL (4.40-5.60); RDW 14.1 % (11.5-14.5); WBC 8.76 X 10*3/uL (4.50-10.00)
[2024-08-09 16:30] LABS: ALT 27 U/L (10-49); AST 20 U/L (14-35); Albumin 4.3 g/dL (3.8-4.9); Albumin/Globulin Ratio 1.65 Ratio (1.60-3.17); Alkaline Phosphatase 89 U/L (41-126); Blood Urea Nitrogen 23.5 mg/dL (9.0-27.0); Calcium 9.5 mg/dL (8.7-10.3); Carbon Dioxide 25.6 mmol/L (21.6-31.8); Chloride 104 mmol/L (96-109); Globulin 2.6 g/dL (1.6-3.3); Glucose 98 mg/dL (70-110); Potassium 4.6 mmol/L (3.5-5.5); Sodium 141 mmol/L (135-145); Total Bilirubin 0.3 mg/dL (0.3-1.2); Total Protein 6.9 g/dL (6.2-8.2)
== END | disposition home or self-care (01) ==
LOC: LABWHC1 08:31
CPT/HCPCS: 36415; 71046; 80053; 81001; 85027; 85610; 85730; 93005

== ENCOUNTER 2025-03-19 12:51 | Emergency (ER) | payer MEDICARE, OTHER ==
[2025-03-19 12:58] VITALS: TEMP 98.4
[2025-03-19] MEDS: diazePAM 2 MG TAB PO STA (13:33)
[2025-03-19] MEDS: ACETAMINOPHEN TAB 500 MG TAB PO STA (13:33)
[2025-03-19] MEDS: KETOROLAC 15 MG/ML 1 ML VIAL IM STA (13:35)
[2025-03-19] MEDS: LIDOCAINE 4% PATCH TOPICAL STA (13:35)
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
--- NOTE | 2025-03-19 14:02 | CT ---
EXAMINATION TYPE: CT cervical spine wo con DATE OF EXAM: 03/19/2025 1:55 PM COMPARISON: None. CLINICAL INDICATION: Male, 54 years old with history of pain; NECK PAIN TECHNIQUE: Axial CT images from the skull base to the inferior aspect of T2 we obtained without intra venous contrast. Coronal and sagittal reformatted images were also reviewed. Contrast used: mL of , (if blank None) Oral contrast used: (if blank None) CT DLP: 402.8 mGycm, Automated exposure control for dose reduction was used. FINDINGS: Fracture: None. Osseous structures: Postsurgical changes at C5-C6 and C7. Anterior fixation is in place. Interbody de vice present. There is incomplete osseous fusion at C5-C6 and C6-C7. Multilevel degeneration with ost eophyte formation and facet and uncovertebral joint arthropathy. Vertebral alignment: Alignment within normal limits. Spinal canal/Neural Foramina: Disc osteophyte complexes at ?? with at least mild spinal canal stenosi s. Facet joint uncovertebral joint arthropathy scattered throughout the cervical spine with varying d egrees of neural foraminal stenosis. No foraminal stenosis C5-C6 with at least [id number] neura l foraminal stenosis. Neck soft tissues: Prevertebral soft tissues are within normal limits. Other: The airway is patent. The lung apices are clear. IMPRESSION: 1. No evidence of cervical spine fracture. 2. Mild multilevel degenerative disc disease. 3. Postsurgical changes at C5-C6 and C7. Anterior fixation is in place. Interbody device present. The re is incomplete osseous fusion at C5-C6 and C6-C7. [facility], , 03/19/2025 1:59 PM
--- NOTE | 2025-03-19 14:14 | CT ---
EXAMINATION TYPE: CT lumbar spine wo con DATE OF EXAM: 03/19/2025 1:59 PM COMPARISON: 06/30/2024.. CLINICAL INDICATION: Male, 54 years old with history of pain; PHH, LOWER BACK PAIN TECHNIQUE: Multiple axial images were obtained from the midportion of T11 through the sacroiliac rocío nts. Soft tissue and bone windows in coronal and sagittal planes were obtained and reviewed. 3-D ref ormats of the bones were created on a separate workstation and submitted for review. Contrast used: mL of , (None, if empty). Oral contrast used: (None, if empty). CT DLP: 2273.3 mGycm, Automated exposure control for dose reduction was used. FINDINGS: Alignment: There are 5 lumbar type vertebral bodies within normal alignment. Bone: No evidence of fracture is identified. Multilevel degeneration changes with osteophyte formati on, disc space narrowing, facet joint arthropathy. Discs: T12-L1: No spinal canal or neural foraminal stenosis is identified. L1-L2: No spinal canal or neural foraminal stenosis is identified. L2-L3: No spinal canal or neural foraminal stenosis is identified. L3-L4: Facet joint arthropathy and disc bulging result in mild to moderate spinal canal stenosis and mild bilateral neural foraminal stenosis. L4-L5: Facet joint arthropathy and disc bulging result in mild spinal canal stenosis and mild bilater al neural foraminal stenosis. L5-S1: Disc bulging with moderate to severe spinal canal stenosis. Mild bilateral neural foraminal st enosis. Other: Gallstone in the gallbladder lumen. Nonobstructing 3 mm renal calculus. Moderate atherosclerosis of the trachea vasculature. IMPRESSION: 1. No evidence for spinal fracture. 2. Disc bulging at multiple levels worse at L4-L5 with moderate to severe spinal canal stenosis. Cons ider repeat MRI. 3. Mild degeneration changes of the spine. 4. Cholelithiasis. [facility], , 03/19/2025 2:12 PM
[2025-03-19] MEDS: MORPHINE SULFATE 2 MG/ML SYRINGE IM STA (15:11)
[2025-03-19 15:16] VITALS: BP 129/90; PULSE 63; RESP 20
== END 2025-03-19 15:15 | disposition home or self-care (01) ==
LOC: EC 12:51
DX: G89.29 Other chronic pain (principal); M51.360 Other intervertebral disc degeneration, lumbar region with discogenic back pain only; F17.200 Nicotine dependence, unspecified, uncomplicated
CPT/HCPCS: 72125; 72131; 99284; 96372 ×2; J2270; J1885